=== PATIENT | male | born 1945 | race Caucasian/White ===

== ENCOUNTER → 2023-11-10 07:49 | Outpatient (REF) | payer BC, SELFPAY | LOC: DHVS 07:49 | PROVIDERS: ATTENDING PHYSICIAN Surgery Vascular Surgery | DX: I65.23 Occlusion and stenosis of bilateral carotid arteries (principal) | CPT/HCPCS: 93880 ==

== ENCOUNTER → 2024-02-27 07:48 | Outpatient (REF) | payer BC, SELFPAY | LOC: RCS 07:48 | PROVIDERS: ATTENDING PHYSICIAN Internal Medicine; FAMILY PHYSICIAN Internal Medicine | DX: Z95.3 Presence of xenogenic heart valve (principal) | CPT/HCPCS: 93306 ==

== ENCOUNTER → 2024-06-16 12:09 | Outpatient (REF) | payer BC, SELFPAY | LOC: RAD 12:09 | PROVIDERS: ATTENDING PHYSICIAN Nurse Practitioner Family | DX: R06.02 Shortness of breath (principal); R04.2 Hemoptysis | CPT/HCPCS: 71046 ==

== ENCOUNTER → 2024-06-17 08:54 | Outpatient (REF) | payer BC, SELFPAY | LOC: REG 08:54 | PROVIDERS: ATTENDING PHYSICIAN Nurse Practitioner Family | DX: R04.2 Hemoptysis (principal) | CPT/HCPCS: 36415; 87070; 87205 ==

== ENCOUNTER → 2024-07-19 07:22 | Outpatient (REF) | payer BC, SELFPAY | LOC: HWRAD 07:22 | PROVIDERS: ATTENDING PHYSICIAN Nurse Practitioner Family; FAMILY PHYSICIAN Internal Medicine | DX: J84.10 Pulmonary fibrosis, unspecified (principal); R93.89 Abnormal findings on diagnostic imaging of other specified body structures | CPT/HCPCS: 71250 ==

== ENCOUNTER → 2024-08-16 22:00 | Outpatient (REF) | payer BC, SELFPAY | LOC: DHSLP 22:00 | PROVIDERS: ATTENDING PHYSICIAN Internal Medicine Critical Care Medicine; FAMILY PHYSICIAN Internal Medicine | DX: G47.33 Obstructive sleep apnea (adult) (pediatric) (principal); R09.02 Hypoxemia | CPT/HCPCS: 95800 ==

== ENCOUNTER → 2024-11-15 09:06 | Outpatient (REF) | payer BC, SELFPAY | LOC: RAD 09:06 | PROVIDERS: ATTENDING PHYSICIAN Internal Medicine | DX: J84.10 Pulmonary fibrosis, unspecified (principal); M16.11 Unilateral primary osteoarthritis, right hip; M54.31 Sciatica, right side | CPT/HCPCS: 72110; 73502 ==

== ENCOUNTER → 2024-11-22 07:42 | Outpatient (REF) | payer BC, SELFPAY | LOC: RAD 07:42 | PROVIDERS: ATTENDING PHYSICIAN Physician Assistant; FAMILY PHYSICIAN Internal Medicine | DX: I65.23 Occlusion and stenosis of bilateral carotid arteries (principal) | CPT/HCPCS: 93880 ==

== ENCOUNTER 2025-01-14 16:57 | Inpatient (IN) | payer BC, SELFPAY ==
[2025-01-14] VITALS (10 sets, daily range): BP systolic 105–132; BP diastolic 71–88; BMI 31.3; BMI 31.0; BMI 30.8
--- NOTE | 2025-01-14 14:03 | ED.GENMED ---
History of Present Illness
General
Chief Complaint: Breathing Problem
Source: patient and spouse
Exam Limitations: none
Time Seen by Provider: 01/14/25 13:44
Nursing documentation reviewed up to this point in time: agreed with
History of Present Illness
History of Present Illness:
79-year-old male presents with shortness of breath subacute onset 3 weeks ago was not using oxygen has had increased cough shortness of breath requiring oxygen no fevers no sputum production no leg edema has a history of interstitial lung disease,
PAF, said bypass surgery, his valve replacement surgery, has been compliant with his blood thinners, did have a recent trip to [place] to go fishing apparently his sats were in the high 60s during the trip, he flew to [facility] in the [place] and back,
Past History
Past History
ED Past Medical History: Arrthythmia, CAD, GERD, HTN, Hypercholesterolemia, Psychiatric, Other and Other
ED Past Surgical History: Cardiac
Social History
Tobacco: Former smoker
Alcohol: None
Drug: None
Personal:
Living: with family
Phy Exam
Physical Exam
Physical Exam:
Physical Exam
General: Tachypneic male
Neck: No jaundice
Heart: Tachycardia
Lungs: Faint crackles but
Abdomen: Nontender
Neuro: alert and oriented. no focal neurological deficits
Skin: no rash
Psychiatric: well kept. interactive and cooperative
Extremities: no edema. no calf tenderness.
Scores
Heart Failure Risk
Heart Failure Risk Score: Not Applicable
Course
Orders/Labs/Results
Orders:
Orders
01/14/25 13:33
EKG [Electrocardiogram (*1)] Urgent
Reason for Study: Chest Pain
01/14/25 13:34
EKG- Treatment ONCE
01/14/25 13:57
Electrocardiogram (*1) Stat
Reason for Study: Other
Other Reason for Exam: chest pain
Cardiac Monitoring- Treatment ONCE
EKG- Treatment ONCE
CR Chest - 2 Views Urgent
Comment:
Reason For Exam: sob
01/14/25 13:59
Complete Blood Count/With Diff Urgent
Comprehensive Metabolic Panel Urgent
Magnesium Urgent
NT-proBNP Urgent
TSH Urgent
Troponin I Urgent
Abnormal Lab Results
01/14/25
13:59
MCV 97.0 H fL
(80.0-94.0)
MCHC 31.4 L g/dL
(33.0-37.0)
RDW 17.2 H %
(11.5-14.5)
Abs Immat Gran (auto) 0.1 H 10^3/uL
(0-0.05)
Absolute Neuts (auto) 7.4 H 10^3/uL
(1.4-6.5)
Absolute Monos (auto) 0.8 H 10^3/uL
(0.1-0.6)
Lymphocytes % 17.0 L %
(20.5-51.1)
Potassium 5.3 H mmol/L
(3.5-5.1)
Chloride 110 H mmol/L
(98-107)
BUN 37 H mg/dl
(9-20)
Creatinine 1.5 H mg/dL
(0.7-1.3)
01/14/25 13:59
01/14/25 13:59
Vital Signs
Initial and Last Documented VS:
Initial Vital Signs
Temp Pulse Resp BP Pulse Ox
97.7 F 74 18 127/81 81
01/14/25 13:09 01/14/25 13:09 01/14/25 13:09 01/14/25 13:09 01/14/25 13:09
Last Documented Vital Signs
Temp Pulse Resp BP Pulse Ox
97.7 F 63 25 105/73 95
01/14/25 13:09 01/14/25 15:00 01/14/25 15:00 01/14/25 15:00 01/14/25 15:00
MDM/Problems Addressed
Differential Diagnosis Includes:
Interstitial lung disease flare, heart failure pneumonia pneumothorax doubt PE as he is anticoagulated
MDM/Problems Addressed:
Hypoxic
Chronic conditions affecting care:
Interstitial lung disease valvular disease CAD
Acute Exacerbation and/or Progression of Chronic Illness:
Interstitial lung disease valvular disease CAD
*Radiology
Radiology exam reviewed: preliminary read by ED provider
*Pulse Oximetry
Patient hypoxic: yes
*EKG
Interpreted by ED Provider?: Yes
Interpretation: abnormal
Comparison EKG: no comparison EKG present
Rate: normal
Rhythm: sinus
Ischemia: non-specific ST changes
*Door [employer] S[employer] Interpretation
Rate: normal
Interpretation: normal
Heart Rate: 78
Rhythm: sinus
*Critical Care Note
Total Time (30-74mins, 75-104mins- exclusive of procedures): Not Applicable
Update Note
Update Note:
Update patient with increased oxygen requirement subacute going from room air to 3 to 4 L, sats as high as the high 60s he is anticoagulated, relatively quiet chest, will check chest x-ray labs
3:10 PM chest x-ray noted---
Patient will require admission, message sent to hospitalist and pulmonary
ED Attending Note
-
Portions of this chart may have been created with voice recognition software.� Occasional wrong word or��sound alike� substitutions may have occurred due to the inherent limitations of voice recognition software.
Discharge Plan
Departure
Patient Disposition: Admit
Date of Disposition: 01/14/25
Time of Disposition: 15:08
Admit to: Med/Surg
Presentation/result/management discussed w/ accepting MD/DO: Hospitalist
Patient with high blood pressure during this ER visit?: No
Condition: Fair
Discharge Problem:
Hypoxia, Idiopathic interstitial fibrosis
Prescriptions:
No Action
aspirin 81 MG tablet,delayed release (DR/EC)
81 mg PO DAILY
isosorbide mononitrate 30 MG tablet extended release 24 hr
30 mg PO DAILY
Xarelto 20 MG tablet
20 mg PO DAILY
lisinopril 20 MG tablet
20 mg PO DAILY
furosemide 20 MG tablet
20 mg PO DAILY
metoprolol succinate 50 MG tablet extended release 24 hr
100 mg PO DAILY
diltiazem HCl [DILT-XR] 180 mg Capsule,Ext.Rel 24h Degradable
180 mg PO DAILY
alirocumab 75 mg/mL Syringe
75 mg SC Q2W
fenofibrate nanocrystallized [Tricor] 145 mg Tablet
145 mg PO DAILY
Referrals:
Shay Rubio MD [Family Provider] -
Interventions
Interventions:
*Risk Screen - Suicide Last Done: 01/14/25 13:09
*General Assessment Last Done: 01/14/25 13:09
*Neglect/Abuse Screening Last Done: 01/14/25 13:09
*ED- Fall Risk Assessment Last Done: 01/14/25 13:49
*ED COVID-19 Vaccine History Last Done: 01/14/25 13:49
ED- Cardiac Assessment Last Done: 01/14/25 13:49
ED- Pulmonary Assessment Last Done: 01/14/25 13:49
Discharge Date and Time
Print Language: POLISH
[2025-01-14 14:07] LABS: % Basophils 0.4 % (0-2); % Eosinophils 3.6 % (0-6); % Immature Granulocytes 0.5 % (0-0.5); % Monocytes 7.3 % (1.7-9.3); % Neutrophils 71.2 % (42.2-75.2); Absolute Eosinophils 0.4 10^3/uL (0-0.7); Absolute Immature Granulocytes 0.1 10^3/uL (0-0.05); Absolute Lymphocytes 1.8 10^3/uL (1.2-3.4); Absolute Monocytes 0.8 10^3/uL (0.1-0.6); Absolute Neutrophils 7.4 10^3/uL (1.4-6.5); Hemoglobin 15.4 g/dL (13.0-18.0); Mean Corp Hgb Conc. 31.4 g/dL (33.0-37.0); Mean Corpuscular Hgb 30.5 pg (27.0-31.0); Mean Platelet Volume 9.9 fL (7.4-10.4); Nucleated Red Blood Cells % 0.6 % (-); Platelet Count 219 10^3/uL (130-400); Red Blood Cell Count 5.05 10^6/uL (4.70-6.10); Red Cell Dist. Width 17.2 % (11.5-14.5); White Blood Cell Count 10.4 10^3/uL (4.8-10.8)
[2025-01-14 14:36] LABS: ALT (SGPT) 23 U/L (0-50); AST (SGOT) 38 U/L (17-59); Albumin 4.1 g/dl (3.5-5.0); Alkaline Phosphatase 47 U/L (38-126); Blood Urea Nitrogen 37 mg/dl (9-20); Calcium 9.4 mg/dl (8.4-10.2); Carbon Dioxide 23 mmol/L (22-30); Chloride 110 mmol/L (98-107); Estimated Creatinine Clearance 46 ml/min; Glucose 91 mg/dl (70-99); Magnesium 2.2 mg/dl (1.6-2.3); Potassium 5.3 mmol/L (3.5-5.1); Sodium 145 mmol/L (135-145); Total Protein 7.3 g/dl (6.3-8.2); eGFR 47.65
[2025-01-14 15:05] LABS: TSH 4.44 uIU/ml (0.47-4.68)
--- NOTE | 2025-01-14 15:35 | HPS.HSE ---
Family Physician
-
Family Physician: Shay Rubio
Chief Complaint
-
sob
cough
History of Present Illness
79-year-old male with past medical history of A-fib, hyperlipidemia, carotid stenosis, hypertension, pulmonary interstitial fibrosis, pulmonary nodule, anxiety, coronary artery disease, prostate cancer, GERD, presents with shortness of breath for
past 3 weeks . Patient uses as needed oxygen . For past few days he has been using pretty much all the time he was using 3 L of oxygen.patient has productive cough with brownish tinged sputum patient denied any fever, chills, chest pain . Patient
denied any headache, dizzy or syncope. Patient denied abdominal pain, nausea, vomiting or diarrhea. Patient denied dysuria hematuria. Patient was at [facility] for past 7 days.
Chest x-ray with impression of severe inflammatory interstitial pneumonitis. Admitting for further manage
Medical History
Past Medical History
Past Medical History: Reports Other
Additional Past Medical History:
Paroxysmal A-fib
Hyperlipidemia, bilateral carotid stenosis, hypertension, pulmonary interstitial fibrosis, pulmonary nodule, anxiety, prostate cancer, hypertension, GERD,
Past Surgical History: Reports Other
Additional Past Surgical History:
Aortic valve replacement, eye surgery, bilateral cataract surgery, right carotid endarterectomy, cardiac ablation
Social History
Tobacco: Former Smoker
Alcohol: Occasional
Drug: None
Personal:
Living: With Family
Family History
Family History: Not pertinent
Allergies / Home Medications
Allergies reflects when Allergies were last updated in [facility].
Home Medications with original date entered in [facility]
Allergy/Medication List:
Allergies
Allergy/AdvReac Type Severity Reaction Status Date / Time
Penicillins Allergy Hives/CHILD Verified 01/14/25 13:09
MERAZ
Goetxgw-IYD-ThZ Reductase Allergy Myalgia Verified 01/14/25 13:09
Inhibitor
[Zbyqfpj-Mcw-Xfx Reductase
Inhibitor]
Home Medications
isosorbide mononitrate 30 mg tablet,extended release 24 hr 30 mg PO DAILY Heart disease/condition 08/21/18
rivaroxaban 20 mg tablet (Xarelto) 20 mg PO DAILY Blood clot prevention/tx 08/21/18
lisinopril 20 mg tablet 20 mg PO DAILY Blood pressure 05/04/19
furosemide 20 mg tablet 20 mg PO DAILY Fluid retention/Swelling 02/23/21
diltiazem HCl 180 mg capsule,extended release 24 hr, controlled (DILT-XR) 180 mg PO DAILY 04/04/22
fenofibrate nanocrystallized 145 mg tablet (Tricor) 145 mg PO DAILY 04/23/22
alirocumab 75 mg/mL subcutaneous pen injector (Praluent Pen) 75 mg SC Q2W 01/14/25
metoprolol succinate 100 mg tablet,extended release 24 hr (Toprol XL) 100 mg PO DAILY 01/14/25
nintedanib 150 mg capsule (Ofev) 150 mg PO HS 01/14/25
therapeutic multivitamin 1 tab PO DAILY 01/14/25
Review of Systems
-
Constitutional: Reports No Symptoms
EENT: Reports No Symptoms
Respiratory: Reports Cough and Trouble Breathing
Cardiac: Reports No Symptoms
Abdomen/GI: Reports No Symptoms
: Reports No Symptoms
Musculoskeletal: Reports No Symptoms
Skin: Reports No Symptoms
Neurological: Reports No Symptoms
Endocrine: Reports No Symptoms
Hematologic/Lymphatic: Reports No Symptoms
Psych: Reports No Symptoms
Physical Exam
Vital Signs
Vital Signs
Temp Pulse Resp BP Pulse Ox
97.7 F 63 25 105/73 95
01/14/25 13:09 01/14/25 15:00 01/14/25 15:00 01/14/25 15:00 01/14/25 15:00
Physical Exam
General: Well Developed, Well Nourished and No Apparent Distress
HEENT: NormoCephalic, Moist mucous membranes and Atraumatic
Respiratory: Crackles
Cardiac: S1/S2 and Regular Rhythm; No Murmur or Rub
GI: Soft, Non Tender, Non Distended and Normal Bowel Sounds; No Organomegaly
Rectal: Deferred by Provider
Musculoskeletal: No Clubbing, No Cyanosis and No Edema
Skin: No Rash
Neuro: AO x 3 and Nonfocal/grossly intact
Psych: Calm
Laboratory Results
-
01/14/25 13:59
01/14/25 13:59
Laboratory Results
Total Bilirubin 1.0 mg/dl (0.2-1.3) 01/14/25 13:59
AST 38 U/L (17-59) 01/14/25 13:59
ALT 23 U/L (0-50) 01/14/25 13:59
Alkaline Phosphatase 47 U/L (38-126) 01/14/25 13:59
Data Reviewed
-
Diagnostic Radiology: Report Reviewed by me
Lab Data: Labs Reviewed by me
Impression/Plan
-
# Acute hypoxic respiratory failure secondary to severe inflammatory interstitial pneumonitis
# History of idiopathic pulmonary fibrosis
- Chest x-ray with impression of SEVERE INFLAMMATORY INTERSTITIAL PNEUMONITIS in the lungs most consistent with usual interstitial pneumonitis (UIP) which appears to have increased since 06/16/2024.
2. Interval increase in a large amount of ground-glass opacity in the right upper lobe which is likely acute inflammatory pneumonitis. Right upper lobe pneumonia is an alternative diagnostic possibility if there are signs/symptoms of infection
(probably less likely).
3. Mildly decreased bilateral lung volumes.
4. Mild cardiomegaly.
-iv ceftriaxone, doxy, Decadron continued
- Tylenol as needed for fever
- Mucinex as needed for cough
- Nebs as needed for short of breath and wheezing
- Continue supplemental oxygen to keep sat greater than 95, wean as tolerated
- Ofev continued
-pulmonary consulted
# Hyperkalemia a/acute kidney injury likely from lisinopril
- K 5.3, creatinine 1.5
- BMP in a.m.
# Paroxysmal A-fib
- EKG with normal sinus rhythm
- Diltiazem, metoprolol, Xarelto continued
# Hyperlipidemia
- Tricor continued
# Essential hypertension
- Isosorbide,Lasix continued
-held Lisinopril
DVT prophylaxis
- Xarelto
# CODE STATUS
- Full code
[2025-01-14 16:34] LABS: NT-proBNP 2360 pg/ml; Troponin I 0.038 ng/ml
--- NOTE | 2025-01-14 16:58 | CON.PUL ---
Consultation
Consultation Request
Date/Time Consultation Requested: 01/14/2025 - 1509
Date/Time Consultation Performed: 01/14/2025 - 1529
Requesting Provider: Dr. Ruvalcaba
Performing Provider: Dr. Ruffin
Reason for Consultation: Hypoxia/ILD
Medical History
-
Chief Complaint: SOB, cough and low oxygen levels
History of Present Illness:
79-year-old former tobacco smoker with a PMHx of IPF on Ofev, chronic hypoxic respiratory failure on 3L/min used with activity, A-fib s/p DCCV x2 and ablation x2 on Xarelto now in NSR, carotid artery stenosis s/p right-sided CEA, CAD s/p CABG x2, AV
stenosis s/p bioprosthetic AVR, HTN, HLD and prostate cancer s/p SBRT who p/w SOB, cough and low oxygen levels. Here today with his , Kiki. He has had a cough for several weeks now, and has been productive of brown phlegm mixed with blood.
As his cough improved, he became increasingly SOB. He hears himself wheezing sometimes. He does not use inhalers as they 'never made him breathe better.' He wears O2 at home at 3L/min with activity and prn, and has been wearing his O2 more as
of late due to SOB. He recently went on a fishing trip with his friends in [facility]. Prior to leaving, his oxygen levels would be in 60-70s, but he went on this trip regardless. In the ER, he was afebrile to 97.7F, HR 61, BP 116/74 and
saturating 81% on 3L/min, which kathleen to 95% on 4L/min. Labs showed WBC 10.4, Hb 15.4, absolute eosinophil count 400, Cr 1.5, K 5.3, troponin 0.038, proBNP 2360, and covid-19 antigen negative. Flu swab also negative. CXR shows interstitial
pneumonitis with increased GGO in RUL. Pt was started on steroids and Abx, and admitted to telemetry under the hospitalist. Pulmonary service now consulted for additional management/recommendations.
Of note, patient follows with us in [facility] office with Dr. Rubio. He underwent pulmonary rehab program in 2022. PFTs from 2021 showed moderate-severe restrictive lung disease with moderate gas exchange capacity defect that normalized when
accounting for alveolar volume involved in gas exchange (DLco: 42%; DLco/VA: 75%).
PMHx: IPF, restrictive lung disease, A-fib on xarelto s/p ablation x2 (02/2021 + 03/2022) with Hx of DCCV x2, bilateral carotid artery stenosis s/p R-CEA (04/2019), aortic stenosis s/p bioprosthetic AVR, CAD s/p CABG x2 (05/2017), HTN, HLD, prostate
cancer s/p SBRT (02/2016)
PSHx: AVR (05/2017), CABG x2 (05/2017)
Past Medical History
Past Medical History: Other (Above as per HPI)
Past Surgical History: Other (Above as per HPI)
Social History
Tobacco: Former Smoker
Alcohol: None
Drug: None
Personal:
Living: With Family
Employment: Retired ([employer])
Family History
Family History: Cancer (Father), Hypertension (Maternal grandmother) and Other (Father: stroke; Mother: COPD)
Allergies / Home Medications
Allergies
Allergy/AdvReac Type Severity Reaction Status Date / Time
Penicillins Allergy Hives/CHILD Verified 01/14/25 13:09
MERAZ
Klmwmsf-YKV-RzN Reductase Allergy Myalgia Verified 01/14/25 13:09
Inhibitor
[Qqovpvu-Obg-Dyc Reductase
Inhibitor]
Home Medications
�Medication �Instructions �Recorded �Confirmed �Last Taken �Type
isosorbide mononitrate 30 mg 30 mg PO DAILY Heart 08/21/18 01/14/25 01/14/25 History
tablet,extended release 24 hr disease/condition
rivaroxaban 20 mg tablet (Xarelto) 20 mg PO DAILY Blood clot 08/21/18 01/14/25 01/14/25 History
prevention/tx
lisinopril 20 mg tablet 20 mg PO DAILY Blood pressure 05/04/19 01/14/25 01/14/25 History
furosemide 20 mg tablet 20 mg PO DAILY Fluid 02/23/21 01/14/25 01/14/25 History
retention/Swelling
diltiazem HCl 180 mg 180 mg PO DAILY 04/04/22 01/14/25 01/14/25 History
capsule,extended release 24 hr,
controlled (DILT-XR)
fenofibrate nanocrystallized 145 145 mg PO DAILY 04/23/22 01/14/25 01/14/25 History
mg tablet (Tricor)
alirocumab 75 mg/mL subcutaneous 75 mg SC Q2W 01/14/25 01/14/25 Unknown History
pen injector (Praluent Pen)
metoprolol succinate 100 mg 100 mg PO DAILY 01/14/25 01/14/25 01/14/25 History
tablet,extended release 24 hr
(Toprol XL)
nintedanib 150 mg capsule (Ofev) 150 mg PO HS 01/14/25 01/14/25 01/13/25 History
therapeutic multivitamin 1 tab PO DAILY 01/14/25 01/14/25 01/14/25 History
Review of Systems
-
History Source: Patient
All other systems: Negative unless noted
Vitals / Labs / Diagnostic Testing
Vital Signs
Temp Pulse Resp BP Pulse Ox
97.7 F 63 25 105/73 95
01/14/25 13:09 01/14/25 15:00 01/14/25 15:00 01/14/25 15:00 01/14/25 15:00
Lab Data
01/14/25 13:59
01/14/25 13:59
Diagnostic Testing:
Physical Exam
-
HEENT: Normocephalic and Anicteric
Cardiovascular: S1/S2, Murmur (NADIRA heard across precordium) and Peripheral Edema (Trace right lower extremity edema, no edema on left lower extremity)
Respiratory: Wheeze (Bilaterally mainly in the bases to midlung roland), Rales (Bilaterally) and Rhonchi (negative)
GI: Soft, Non Distended, Non Tender and Normal Bowel Sounds
Neurology: AO x 3 and Tremors (negative)
Skin: Warm and Dry
General: Respiratory Distress (negative), Comfortable, Fever (negative) and Chills (negative)
Assessment
-
Assessment: 79-year-old former tobacco smoker with a PMHx of IPF on Ofev, chronic hypoxic respiratory failure on 3L/min used with activity, A-fib s/p DCCV x2 and ablation x2 on Xarelto now in NSR, carotid artery stenosis s/p right-sided CEA, CAD
s/p CABG x2, AV stenosis s/p bioprosthetic AVR, HTN, HLD and prostate cancer s/p SBRT who p/w SOB, cough and low oxygen levels. Here today with his , Kiki. He has had a cough for several weeks now, and has been productive of brown phlegm
mixed with blood. As his cough improved, he became increasingly SOB. He hears himself wheezing sometimes. He does not use inhalers as they 'never made him breathe better.' He wears O2 at home at 3L/min with activity and prn, and has been
wearing his O2 more as of late due to SOB. He recently went on a fishing trip with his friends in [facility]. Prior to leaving, his oxygen levels would be in 60-70s, but he went on this trip regardless. In the ER, he was afebrile to 97.7F, HR
61, BP 116/74 and saturating 81% on 3L/min, which kathleen to 95% on 4L/min. Labs showed WBC 10.4, Hb 15.4, absolute eosinophil count 400, Cr 1.5, K 5.3, troponin 0.038, proBNP 2360, and covid-19 antigen negative. Flu swab also negative. CXR shows
interstitial pneumonitis with increased GGO in RUL. Pt was started on steroids and Abx, and admitted to telemetry under the hospitalist. Pulmonary service now consulted for additional management/recommendations.
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
HLD, prostate cancer s/p SBRT (02/2016)
Impression:
#Acute on chronic respiratory failure with hypoxia
#IPF with suspected flare
#MARLON
#Elevated troponin likely due to demand ischemia/type II IN
#Moderate-severe restrictive lung disease (T% predicted via PFT from 08/2022)
#Severe ARAVIND - AHI: 34.1 with casey SpO2 71% via HSAT from 08/2024
#Chronic HFpEF/diastolic heart failure
#A-fib s/p DCCV x2 + ablation x2 now in NSR
#Hx of prostate cancer s/p SBRT (02/2016)
#Hx of moderate-severe aortic stenosis s/p bioprosthetic AVR (05/2017)
#CAD s/p CABG x2 (05/2017)
#HTL
#HLD
#Former tobacco smoker
Plan:
- Patient has had worsening hypoxia with a productive cough and worsening SOB that has been progressively worsening over the last several days/weeks
- He also has been hearing himself wheeze, and his absolute eosinophils are currently 400 (range is 300-500) --> he does not use inhalers at home as they have not made him breathe better in the past
- He is currently wheezing, hence would start DuoNebs QID and given prn DuoNebs for breakthrough symptoms; he may have underlying RAD
- He has increased opacification in the right upper lobe seen on CXR
- Although his WBC is WNL at 10.4, would empirically treat for pneumonia
- Also appropriate to treat with systemic steroids for a possible ILD flare (also wheezing), although this does seem more infectious at this point
- Would check infectious workup with sputum culture, blood cultures, Legionella/pneumonia urine antigens
- Aspiration precautions
- Continue with supplemental oxygen and titrate to maintain SpO2 >90-94%; he will need a home O2 assessment prior to discharge to re-assess O2 needs
- Continue Ofev
- Trend troponin level until it peaks
- proBNP is elevated at 2360, and he does have mild edema on RLE but he says this is chronic. He does not appear overloaded on exam - continue to monitor and consider trial of lasix if hypoxia worsens despite ABx and steroids
- He does take lasix 20mg daily at home, but this should be held currently in setting of his MARLON
- Consider repeating echo (last performed in February 2024 showing Stage II diastolic dysfunction with no regional WMA and LVEF 65-70%)
- Renally dose all meds/ABx
- Trend UOP, sCr, [K] levels and I/O
- Incentive spirometer encouraged q1hr while awake
- He does have a Hx of severe ARAVIND - would consider using CPAP with sleep
- Replete electrolytes with K>4, Mg>2
- Trend H/H and transfuse if needed to keep Hb>7g/dL; keep plt>20k, unless there is concern for bleeding then keep plt>50k
- Maintain euglycemia with goal BG >100 and <180
- DVT ppx: Xarelto
Pulmonary service will continue to follow along. Will assure he has follow up arranged with Dr. Rubio upon discharge.
Data:
CXR 01/14/2025:
1. 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
2. Interval increase in a large amount of ground-glass opacity in the right upper lobe which is likely acute inflammatory pneumonitis. Right upper lobe pneumonia is an alternative diagnostic possibility if there are signs/symptoms of infection
(probably less likely).
3. Mildly decreased bilateral lung volumes.
4. Mild cardiomegaly.
5. Previous CABG surgery and surgical aortic valve replacement.
Total time spent today was 58 minutes for this encounter. Time includes reviewing laboratory test/imaging results, reviewing pertinent medical records, obtaining and reviewing medical history, performing an appropriate exam, ordering medications,
tests and procedures. Time also includes documentation of this encounter, coordinating patient care and communicating with other healthcare professionals. Total time does not include separately billed tests performed on this date of service.
Patient was seen and evaluated on 01/14/2025
[2025-01-14 17:54] LABS: COVID-19 Antigen Negative (Negative)
--- NOTE | 2025-01-14 18:30 | PTCARENOTE ---
Received patient from ED via stretcher. AAOx3, ambulated to bed without assistance. Assessed and oriented to room. 5LO2 96%. No complaints at present time. Call morales in close reach.
--- NOTE | 2025-01-14 19:06 | W.PN.UPDATE ---
Update Note
Progress Note Update
This is an addendum to the H&P written by Vicki Hardin on 01/14/2025.� Patient seen and examined independently with [employer]OOTER'S HELPER.
79-year-old male past medical history of incisional pulmonary fibrosis uses oxygen as needed, paroxysmal atrial fibrillation on Xarelto, CAD status post CABG, CHF, bioprosthetic aortic valve replacement, carotid stenosis, hypertension,
hyperlipidemia, presenting with hypoxemia over the past few weeks and shortness of breath with productive cough.� No signs of volume overload or chest pain.
Patient on 4L oxygen.�
Labs show creatinine 1.5, potassium 5.3.
Chest x-ray shows severe inflammatory interstitial pneumonitis in the lung consistent with usual interstitial pneumonitis which appears to have increased since 06/16.� There is increase in large amount of groundglass opacity in the right upper lobe
likely acute inflammatory pneumonitis.� Mild cardiomegaly.
Check COVID and flu.
Patient with likely interstitial pneumonitis flareup.� Will start empiric ceftriaxone/doxycycline.� Dexamethasone 4 mg every 12, as needed DuJesus.� Pulmonary consulted.� Does not appear volume overloaded.
Patient also with borderline MARLON and hyperkalemia likely secondary to lisinopril.� Hold lisinopril.
[2025-01-14] MEDS: DUONEB 3 ML INH (19:09)
[2025-01-14 20:32] LABS: Troponin I 0.033 ng/ml
[2025-01-14] MEDS: VIBRAMYCIN 100 MG PO (20:47)
[2025-01-14] MEDS: DECADRON 4 MG IV (20:48)
[2025-01-14] MEDS: STERILE WATER FOR INJECTION 10 ML IV (20:48)
[2025-01-14] MEDS: FLUSH (NSS) 1 FLUSH IV (20:49)
[2025-01-14] MEDS: MUCINEX 600 MG PO (20:49)
[2025-01-14] MEDS: ROCEPHIN 1000 MG IV (20:49)
[2025-01-15] VITALS (7 sets, daily range): BP systolic 96–123; BP diastolic 58–83; BMI 30.8
[2025-01-15 02:44] LABS: Troponin I 0.029 ng/ml
[2025-01-15] MEDS: DECADRON 4 MG IV ×2 (05:59→17:12)
[2025-01-15 06:59] LABS: % Basophils 0.1 % (0-2); % Eosinophils 0.2 % (0-6); % Immature Granulocytes 0.5 % (0-0.5); % Monocytes 1.1 % (1.7-9.3); % Neutrophils 87.1 % (42.2-75.2); Absolute Lymphocytes 0.9 10^3/uL (1.2-3.4); Absolute Monocytes 0.1 10^3/uL (0.1-0.6); Absolute Neutrophils 7.1 10^3/uL (1.4-6.5); Hematocrit 49.5 % (39.0-52.0); Hemoglobin 15.7 g/dL (13.0-18.0); Mean Corp Hgb Conc. 31.7 g/dL (33.0-37.0); Mean Corpuscular Hgb 30.9 pg (27.0-31.0); Mean Corpuscular Volume 97.4 fL (80.0-94.0); Mean Platelet Volume 9.9 fL (7.4-10.4); Nucleated Red Blood Cells % 0.4 % (-); Platelet Count 198 10^3/uL (130-400); Red Blood Cell Count 5.08 10^6/uL (4.70-6.10); Red Cell Dist. Width 16.5 % (11.5-14.5); White Blood Cell Count 8.2 10^3/uL (4.8-10.8)
[2025-01-15 07:30] LABS: Blood Urea Nitrogen 36 mg/dl (9-20); Calcium 9.2 mg/dl (8.4-10.2); Carbon Dioxide 25 mmol/L (22-30); Chloride 111 mmol/L (98-107); Estimated Creatinine Clearance 52 ml/min; Glucose 135 mg/dl (70-99); Magnesium 2.2 mg/dl (1.6-2.3); Phosphorus 5.1 mg/dl (2.5-4.5); Potassium 5.5 mmol/L (3.5-5.1); Sodium 147 mmol/L (135-145); eGFR 56.58
[2025-01-15] MEDS: DUONEB 3 ML INH ×3 (08:04→15:17)
[2025-01-15] MEDS: TRICOR 48 MG PO (08:27)
[2025-01-15] MEDS: CARDIZEM CD 180 MG PO (08:27)
[2025-01-15] MEDS: XARELTO 15 MG PO (08:27)
[2025-01-15] MEDS: THERAGRAN 1 TABLET PO (08:27)
[2025-01-15] MEDS: LASIX 20 MG PO (08:27)
[2025-01-15] MEDS: TOPROL XL 100 MG PO (08:27)
[2025-01-15] MEDS: IMDUR (EXTENDED RELEASE) 30 MG PO (08:28)
[2025-01-15] MEDS: MUCINEX 600 MG PO ×2 (08:28→19:43)
[2025-01-15] MEDS: VIBRAMYCIN 100 MG PO ×2 (08:28→19:43)
[2025-01-15] MEDS: LR 500 IV (09:04)
[2025-01-15] MEDS: LOKELMA 10 GRAM PO (09:06)
--- NOTE | 2025-01-15 09:34 | W.PN.HOSP.TC ---
Today's Communication/Plan
-
see PN
Assessment / Plan
Assessment / Plan
79yo M with PMHx of carotis stensis s/p r CEA, CAD s/p CABG, Afib on Xarelto, bioprosthetic AV (as per Echo at summer 2023 - gradient increased from 7 to 22), HFpEF grade 2 diastolic dysfunction, HTN, HLD, ILD on 2L home O2 as needed came with few
weeks of worsening SOB started when he traveled to [facility] for a fishing. He took his concentrator with him and since started to experience dyspnea - used it, but as per patient his pulse O2 duid not go above 75% and he was concerned if
concentrator actually was working. Upon return he came to ED due to persistent dyspnea and staretd on treatment for ILD with psosible pneumonia
A/P:
#Acute idiopatic ILD flare with most likely UIP anthony possible RUL pneumonia
restrictive pattern on outpatient PFT
follows with
Pulm consult: steroids, bronchodilators, Ceftriaxone/Doxy
Wean off O2
CM for appropriate home f/u to make sure that concerntrator is working before d/c
#Acute on chronic HFpEF
#Bioprosthetic AV
#Afib, paroxysmal
#Essential HTN
#Elevated trop - non-ischemic myocardial injury 2/2 hypoxia
Troponin improved to normal
EKG without ACS findings
Elevated BNP on admission
Lasix PRN, daily weight and follow electrolytes
cont Xarelto
telemetry
cont BB
Cardio consult
Echo
#Hypernatremia
#MARLON on admission
#Hyperkalemia
Lasix
follow BMP
stop ACEi
follow Cr - baseline 1.1-1.2
#HLD
cont home meds
DVt ppx Xarelto
Full code
I have spent at least 59min reviewing chart, test results, communication with consultantants and providing direct patient care
Anticipated Discharge: > 48 hours
Subjective/Interval History
-
Date of Service: January 15, 2025
Objective Data
-
Labs:
Laboratory Results
01/15/25 01/15/25
06:45 18:00
WBC 8.2
Hgb 15.7
Hct 49.5
Plt Count 198
Sodium 147 H Pending
Potassium 5.5 H Pending
Chloride 111 H Pending
Carbon Dioxide 25 Pending
BUN 36 H Pending
Creatinine 1.3 Pending
Glucose 135 H Pending
Calcium 9.2 Pending
Vital Signs:
Vital Signs
Temp Pulse Resp BP Pulse Ox
98.1 F 68 15 123/83 96
01/15/25 07:30 01/15/25 08:27 01/15/25 08:09 01/15/25 08:27 01/15/25 08:30
I&O
01/14/25 01/15/25 01/16/25
06:59 06:59 06:59
Intake Total 440 / 440
Output Total 400 / 400
Balance 40 / 40
Review of Systems
-
History Source: Patient
All other systems: Reviewed and negative
Physical Exam
-
General: Comfortable
HEENT: Normocephalic
Respiratory: Crackles (bibasilar)
Cardiac: Regular Rhythm
GI: Soft, Nontender and Nondistended
Genito-urinary: Costovertebral Angle Tend
Musculoskeletal: No Clubbing, No Cyanosis, Edema, Right Lower Extrem and Edema, Left Lower Extrem
Skin: Warm
Neuro: Awake, Alert, Oriented and AO x 3
Psych: Calm
[2025-01-15] MEDS: LASIX 40 MG IV (10:43)
--- NOTE | 2025-01-15 11:09 | CON.CAR ---
Addendum entered and electronically signed by William Day MD 01/15/25 16:17:
I saw and examined the patient.
The GIFT MANAGER's note was reviewed and I agree with the note.
Comment: LA pressure measured at PVI 03/2022: LA 16 mmHg at baseline, raising to 20 at end of procedure.LA pressure 02/2021: 11 at start and after PVI kathleen to 14 mmHg. He has no edema, abdominal distension, PND, or orthopnea. I do not feel that
heart failure is adding an acute component to his chronic respiratory symptoms but I have no objection to pushing diuresis to see respnons. He is on Lasix 20 mg daily as outpatient.
Original Note:
Consultation
Consultation Request
Date/Time Consultation Requested: 01/15/2025 09:30
Date/Time Consultation Performed: 01/15/2025 10:30
Requesting Provider: Dr. Sierra
Performing Provider: BRIANNE Holguin for Dr. Day
Reason for Consultation: CHF
Medical History
-
Chief Complaint: Shortness of breath
History of Present Illness:
Miles ('Heraclio'Hans Diehl is a 78-year-old male with coronary artery disease and aortic stenosis status-post CABG x2 (TERRY to LAD and SVG to OM3; RCA not bypassed due to small vessel size) and bioprosthetic aortic valve replacement (on 05/27/17),
paroxysmal atrial fibrillation status-post ablation (02/23/21; Dr. Pizano), DCCVN (09/25/18; currently on Xarelto), redo ablation (04/04/2022; Dr. Pizano), and subsequent DCCVN 04/23/2022, white coat hypertension, hyperlipidemia (on Praluent;
statin-intolerant), severe right carotid artery stenosis status-post right CEA (on 05/06/19), moderate left carotid artery stenosis (followed by Vascular Surgery--Dr. Sagastume), mild renal insufficiency, mild obesity, former cigarette use, restrictive
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
03/13/16; now in remission) presented to the emergency department with a chief complaint of shortness of breath. He was found to have an acute idiopathic ILD flare. Cardiology was consulted for concern with acute HFpEF. Bill is not sure what
'triggered' this. He reports getting an RSV vaccination last month and then went to the [facility] for a fishing trip. He felt unwell on the fishing trip and was more short of breath than usual. He did take his concentrator with him and was
using it more frequently in [place] than he was here in [place]. He reports feeling improved since his admission to the hospital. CXR with severe inflammatory interstitial pneumonitis. He was admitted with an MARLON which appears to have
resolved. He has mild hyperkalemia. He also has a CRP of 19.50. His proBNP was found to be 2360. No prior proBNP for comparison.
Past Medical History
Past Medical History: Arrhythmias (Paroxysmal atrial fibrillation status post ablation), CAD, Cancer (Prostate), HTN, Hypercholesterolemia, Valvular Disease (Bioprosthetic AVR) and Other (ILD, carotid artery stenosis, ARAVIND)
Past Surgical History: Cardiac
Social History
Tobacco: Former Smoker
Alcohol: Occasional
Drug: None
Personal:
Employment: Retired
Family History
Family History: Reviewed & Not Pertinent
Allergies / Home Medications
Allergy/AdvReac Type Severity Reaction Status Date / Time
Penicillins Allergy Hives/CHILD Verified 01/14/25 13:09
MERAZ
Npvezno-XYQ-NbD Reductase Allergy Myalgia Verified 01/14/25 13:09
Inhibitor
[Jfacwaq-Kod-Xmf Reductase
Inhibitor]
�Medication �Instructions �Recorded �Confirmed �Type
isosorbide mononitrate 30 mg 30 mg PO DAILY Heart 08/21/18 01/14/25 History
tablet,extended release 24 hr disease/condition
rivaroxaban 20 mg tablet (Xarelto) 20 mg PO DAILY Blood clot 12/07/18 05/02/25 History
prevention/tx
lisinopril 20 mg tablet 20 mg PO DAILY Blood pressure 05/04/19 01/14/25 History
furosemide 20 mg tablet 20 mg PO DAILY Fluid 02/23/21 01/14/25 History
retention/Swelling
diltiazem HCl 180 mg 180 mg PO DAILY 04/04/22 01/14/25 History
capsule,extended release 24 hr,
controlled (DILT-XR)
fenofibrate nanocrystallized 145 145 mg PO DAILY 04/23/22 01/14/25 History
mg tablet (Tricor)
alirocumab 75 mg/mL subcutaneous 75 mg SC Q2W 01/14/25 01/14/25 History
pen injector (Praluent Pen)
metoprolol succinate 100 mg 100 mg PO DAILY 01/14/25 01/14/25 History
tablet,extended release 24 hr
(Toprol XL)
nintedanib 150 mg capsule (Ofev) 150 mg PO HS 01/14/25 01/14/25 History
therapeutic multivitamin 1 tab PO DAILY 01/14/25 01/14/25 History
Review of Systems
-
History Source: Patient
All other systems: Negative unless noted
Constitutional: Fatigue
EENT: No Symptoms
Respiratory: Trouble Breathing
Cardiac: No Symptoms
Abdomen/GI: No Symptoms
: No Symptoms
Musculoskeletal: No Symptoms
Skin: No Symptoms
Neurological: No Symptoms
Endocrine: No Symptoms
Hematologic/Lymphatic: No Symptoms
Physical Exam
Vital Signs
Temp Pulse Resp BP Pulse Ox
98.1 F 68 15 123/83 96
01/15/25 07:30 01/15/25 08:27 01/15/25 08:09 01/15/25 08:27 01/15/25 08:30
Lab Results
01/15/25 06:45
Troponin I Cancelled 01/15/25 12:45
Sge-Q-Wzksvjtedaa Pept 2360 pg/ml 01/14/25 13:59
Physical Exam
General: Well Developed, Well Nourished, No Apparent Distress and Comfortable
HEENT: Normocephalic, Anicteric and Moist Mucous Membranes
Respiratory: Crackles (coarse) and Non Labored Respirations
Cardiac: S1/S2 and Regular Rhythm; Negative Peripheral Edema
Breast: Deferred by me
GI: Soft, Non Tender, Non Distended and Normal Bowel Sounds
Rectal: Deferred by Provider
Genito-urinary: No Costovertebral Tender
Musculoskeletal: No Cyanosis and No Edema
Skin: Warm and Dry
Neuro: AO x 3
Hematologic/Lymphatic: No Lymphadenopathy
Psych: Calm
Impression / Plan
-
I/P: 79M with CAD status post CABG x 2, bioprosthetic aortic valve replacement, paroxysmal atrial fibrillation (status post ablation 2020, 2021; on rivaroxaban), dyslipidemia, right CEA, moderate left carotid artery stenosis, former smoker, and
restrictive lung disease/pulmonary interstitial fibrosis and stage II adenocarcinoma of the prostate in remission who presented to the emergency department with a chief complaint of shortness of breath. Cardiology was consulted for concern of heart
failure.
Outpatient customer service administrator Dr. Harper
Acute on chronic hypoxic respiratory insufficiency in the setting of acute idiopathic ILD flare
- Restrictive pattern per outpatient PFT
- Antibiotics and steroids for pulmonary
- Trial of intravenous furosemide to assess for improvement, he has never had an acute heart failure exacerbation
- O2 being weaned as tolerated
MARLON on CKD
- Follow with diuresis
- Lisinopril on hold
Severe aortic stenosis s/p bioprosthetic AVR
- Peak/mean gradients 25/15 mmHg without AR on TTE 02/2024
Paroxysmal atrial fibrillation
- In sinus rhythm on metoprolol and diltiazem, continue
- Oral anticoagulation: Rivaroxaban 20 mg (creatinine clearance 52)
Coronary artery disease s/p CABG x 2 (PAUL, SVG�OM 3; RCA not bypassed due to small vessel size) 05/27/2017
- Stable without chest pain
- On Xarelto for paroxysmal atrial fibrillation, no ASA secondary to prior nosebleeding
Hypertension, chronic, stable, may need to decrease lisinopril for hyperkalemia
Former smoker, continued cessation recommended
Carotid artery stenosis, followed by vascular surgery
Stage II adenocarcinoma the prostate, in remission
SUBJECTIVE:
As above.
DATA:
Transthoracic echocardiogram, 02/27/2024:
CONCLUSIONS
Normal biventricular size and systolic function without regional wall motion
abnormality.
Stage II diastolic dysfunction suggestive of abnormal relaxation and increased
filling pressures.
Well seated, normally functioning, bioprosthetic aortic valve replacement with
peak/mean gradients of 25/15 mmHg. No aortic regurgitation.
Compared to prior study of 10/01/21, the mean gradient across the aortic
bioprosthetic valve was 7mmHg and is now 15mmHg.
Data Reviewed
-
EKG: Report Reviewed by me
Radiology: Report Reviewed by me
Medical Tests (Nuc Med, Echo etc): Report Reviewed by me
Labs: Labs Reviewed by me
Old Records: Reviewed
--- NOTE | 2025-01-15 16:41 | W.PN.PUL3 ---
Today's Communication / Plan
-
Continue DuoNebs
Systemic steroids with wean as he clinically improves
Okay to resume home Lasix dosing given MARLON has now resolved; given the elevated proBNP, not unreasonable to give short trial of IV Lasix
Up OOB as tolerated
Continue Ofev
Xarelto
Antibiotics with ceftriaxone/doxycycline
Outpatient follow-up will be arranged
Pulmonary service will continue to follow along
Assessment
-
Assessment: 79-year-old former tobacco smoker with a PMHx of IPF on Ofev, chronic hypoxic respiratory failure on 3L/min used with activity, A-fib s/p DCCV x2 and ablation x2 on Xarelto now in NSR, carotid artery stenosis s/p right-sided CEA, CAD
s/p CABG x2, AV stenosis s/p bioprosthetic AVR, HTN, HLD and prostate cancer s/p SBRT who p/w SOB, cough and low oxygen levels. Here today with his , Kiki. He has had a cough for several weeks now, and has been productive of brown phlegm
mixed with blood. As his cough improved, he became increasingly SOB. He hears himself wheezing sometimes. He does not use inhalers as they 'never made him breathe better.' He wears O2 at home at 3L/min with activity and prn, and has been
wearing his O2 more as of late due to SOB. He recently went on a fishing trip with his friends in [facility]. Prior to leaving, his oxygen levels would be in 60-70s, but he went on this trip regardless. In the ER, he was afebrile to 97.7F, HR
61, BP 116/74 and saturating 81% on 3L/min, which kathleen to 95% on 4L/min. Labs showed WBC 10.4, Hb 15.4, absolute eosinophil count 400, Cr 1.5, K 5.3, troponin 0.038, proBNP 2360, and covid-19 antigen negative. Flu swab also negative. CXR shows
interstitial pneumonitis with increased GGO in RUL. Pt was started on steroids and Abx, and admitted to telemetry under the hospitalist. Pulmonary service now consulted for additional management/recommendations.
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
HLD, prostate cancer s/p SBRT (02/2016)
Impression:
#Acute on chronic respiratory failure with hypoxia
#IPF with suspected flare
#MARLON � resolved
#Elevated troponin likely due to demand ischemia/type II LA � peaked at 0.038 on 01/14
#Moderate-severe restrictive lung disease (T% predicted via PFT from 08/2022)
#Severe ARAVIND (AHI: 34.1 with casey SpO2 71% via HSAT from 08/2024)
#Chronic HFpEF/diastolic heart failure
#A-fib s/p DCCV x2 + ablation x2 now in NSR
#Hx of prostate cancer s/p SBRT (02/2016)
#Hx of moderate-severe aortic stenosis s/p bioprosthetic AVR (05/2017)
#CAD s/p CABG x2 (05/2017)
#HTL
#HLD
#Former tobacco smoker
Plan:
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
- He also had been hearing himself wheeze, and his absolute eosinophils on admission were 400 (range is 300-500) --> he does not use inhalers at home as they have not made him breathe better in the past
- He was wheezing on admission, although this has now resolved --> continue DuoNebs QID and continue prn DuoNebs for breakthrough symptoms; he may have underlying RAD
- He has increased opacification in the right upper lobe seen on CXR
- Although his WBC is WNL at 10.4, continue empirical treatment for pneumonia
- Also appropriate to treat with systemic steroids for a possible ILD flare (plus he was wheezing)
- Follow up infectious workup with sputum culture and check blood cultures; Legionella/pneumonia urine antigens both negative
- Aspiration precautions
- Continue with supplemental oxygen and titrate to maintain SpO2 >90-94%; he will need a home O2 assessment prior to discharge to re-assess O2 needs
- Continue Ofev
- Troponin has peaked at 0.038 on 01/14 to no longer need to continue trending at this time
- proBNP is elevated at 2360, and on admission in the ER, he had mild edema on RLE but he says this is chronic. He does not appear overloaded on exam - continue to monitor and consider trial of IV lasix if hypoxia worsens or fails to improve
despite ABx and steroids; interestingly, his RLE edema is now resolved, and he has trace on the LLE now (on 01/15)
- He does take lasix 20mg daily at home - ok to resume now that MARLON has resolved
- Recommend to repeat echo as last performed in February 2024 showing Stage II diastolic dysfunction with no regional WMA and LVEF 65-70%
- Renally dose all meds/ABx
- Trend UOP, sCr, [K] levels and I/O
- Incentive spirometer encouraged q1hr while awake
- He does have a Hx of severe ARAVIND - would consider using CPAP with sleep if he is amenable to this
- Replete electrolytes with K>4, Mg>2
- Trend H/H and transfuse if needed to keep Hb>7g/dL; keep plt>20k, unless there is concern for bleeding then keep plt>50k
- Maintain euglycemia with goal BG >100 and <180
- DVT ppx: Xarelto
Pulmonary service will continue to follow along. Will assure he has follow up arranged with Dr. Rubio upon discharge.
Data:
CXR 01/14/2025:
1. 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
2. Interval increase in a large amount of ground-glass opacity in the right upper lobe which is likely acute inflammatory pneumonitis. Right upper lobe pneumonia is an alternative diagnostic possibility if there are signs/symptoms of infection
(probably less likely).
3. Mildly decreased bilateral lung volumes.
4. Mild cardiomegaly.
5. Previous CABG surgery and surgical aortic valve replacement.
Total time spent today was 38 minutes for this encounter. Time includes reviewing laboratory test/imaging results, reviewing pertinent medical records, obtaining and reviewing medical history, performing an appropriate exam, ordering medications,
tests and procedures. Time also includes documentation of this encounter, coordinating patient care and communicating with other healthcare professionals. Total time does not include separately billed tests performed on this date of service.
Subjective Data
-
Date of Service:
Date of Service: January 15, 2025
Chief Complaint: Pulmonary Follow Up
Subjective:
Patient was seen and evaluated today at bedside (late note entry). He is starting to feel much better, feeling less restricted with his breathing overall. Currently on 3 L/min nasal cannula saturating 94%. Has an occasional cough which is now
dry. Denies chest pain, PEPE, nausea, fevers or chills.
Review of Systems
General: Other (Negative unless mentioned above)
Objective Data
Data Reviewed
Vital Signs / I&O / Oxygen:
Vital Signs
Temp Pulse Resp BP Pulse Ox
98.1 F 68 15 123/83 96
01/15/25 07:30 01/15/25 08:27 01/15/25 08:09 01/15/25 08:27 01/15/25 08:30
Intake and Output
01/14/25 01/15/25 01/16/25
06:59 06:59 06:59
Intake Total 440 / 440
Output Total 400 / 400
Balance 40 / 40
SaO2 96
Nasal Cannula flow liters per 4
minute
Physical Exam
General: Respiratory Distress (negative), Comfortable, Chills (negative) and Sweats (negative)
HEENT: Normocephalic and Anicteric
Cardiovascular: S1-S2, Murmur (NADIRA appreciated across precordium) and Peripheral Edema (Trace left lower extremity edema, no edema appreciated on RLE)
Respiratory: Wheeze (negative), Crackles (Bilateral), Rhonchi (Bilateral) and Non-Labored Respirations
GI: Soft, Non Distended and Normal Bowel Sounds
Neurology: AO x 3 and Tremors (negative)
Skin: Warm, Dry, Cyanosis (negative) and Jaundice (negative)
Labs/Micro/Reports
Lab Data
01/15/25 06:45
Microbiology
01/15/25 02:47 Urine Legionella Urinary Antigen - Final
Negative for Legionella pneumophila Serogroup 1 antigen.
A negative result does not rule out the possiblity of
Legionella infection due to other serogroups or species of
Legionella. Clinical correlation is recommended.
01/15/25 02:47 Urine Streptococcus pneumoniae Antigen (M - Final
Negative for Streptococcus pneumoniae antigen.
A negative result does not exclude infection with
Streptococcus pneumoniae. Clinical correlation is
recommended.
01/14/25 17:16 Nasal Swab Influenza Types A & B (MARK) - Final
Negative for Influenza A & B, NAAT
Negative results must be combined with clinical observations
and patient history.
Nucleic Acid Amplification test (NAAT)performed on the
[employer] platform.
[2025-01-15] MEDS: STERILE WATER FOR INJECTION 10 ML IV (17:13)
[2025-01-15] MEDS: ROCEPHIN 1000 MG IV (17:13)
[2025-01-15 17:49] LABS: Blood Urea Nitrogen 39 mg/dl (9-20); Calcium 9.2 mg/dl (8.4-10.2); Carbon Dioxide 25 mmol/L (22-30); Chloride 108 mmol/L (98-107); Estimated Creatinine Clearance 52 ml/min; Glucose 152 mg/dl (70-99); Potassium 4.3 mmol/L (3.5-5.1); Sodium 144 mmol/L (135-145); eGFR 56.58
[2025-01-15] MEDS: NON-FORMULARY ITEM 150 MG PO (22:37)
[2025-01-16] MEDS: DUONEB INH (01:09)
[2025-01-16 03:50] VITALS: BP 118/74
[2025-01-16 04:45] VITALS: BMI 30.6
[2025-01-16] MEDS: DECADRON 4 MG IV ×2 (05:28→17:22)
[2025-01-16 06:39] LABS: % Basophils 0.1 % (0-2); % Immature Granulocytes 0.6 % (0-0.5); % Lymphocytes 5.4 % (20.5-51.1); % Neutrophils 91.9 % (42.2-75.2); Absolute Immature Granulocytes 0.1 10^3/uL (0-0.05); Absolute Monocytes 0.4 10^3/uL (0.1-0.6); Absolute Neutrophils 16.4 10^3/uL (1.4-6.5); Hematocrit 47.6 % (39.0-52.0); Hemoglobin 14.6 g/dL (13.0-18.0); Mean Corp Hgb Conc. 30.7 g/dL (33.0-37.0); Mean Corpuscular Hgb 30.4 pg (27.0-31.0); Mean Platelet Volume 10.4 fL (7.4-10.4); Nucleated Red Blood Cells % 0 % (-); Platelet Count 209 10^3/uL (130-400); Red Blood Cell Count 4.81 10^6/uL (4.70-6.10); Red Cell Dist. Width 15.9 % (11.5-14.5); White Blood Cell Count 17.9 10^3/uL (4.8-10.8)
[2025-01-16 06:57] LABS: ALT (SGPT) 17 U/L (0-50); AST (SGOT) 24 U/L (17-59); Albumin 3.8 g/dl (3.5-5.0); Alkaline Phosphatase 49 U/L (38-126); Blood Urea Nitrogen 42 mg/dl (9-20); Carbon Dioxide 25 mmol/L (22-30); Chloride 108 mmol/L (98-107); Estimated Creatinine Clearance 48 ml/min; Glucose 114 mg/dl (70-99); Magnesium 2.1 mg/dl (1.6-2.3); Sodium 146 mmol/L (135-145); Total Bilirubin 0.7 mg/dl (0.2-1.3); Total Protein 6.7 g/dl (6.3-8.2); eGFR 51.77
[2025-01-16 07:17] VITALS: BP 148/90
[2025-01-16] MEDS: DUONEB 3 ML INH ×4 (07:30→20:34)
[2025-01-16] MEDS: LASIX 40 MG IV (07:47)
[2025-01-16] MEDS: TOPROL XL 100 MG PO (07:48)
[2025-01-16] MEDS: TRICOR 48 MG PO (07:48)
[2025-01-16] MEDS: VIBRAMYCIN 100 MG PO ×2 (07:49→20:44)
[2025-01-16] MEDS: CARDIZEM CD 180 MG PO (07:49)
[2025-01-16] MEDS: THERAGRAN 1 TABLET PO (07:49)
[2025-01-16] MEDS: XARELTO 15 MG PO (07:49)
[2025-01-16] MEDS: MUCINEX 600 MG PO ×2 (07:50→20:44)
[2025-01-16] MEDS: IMDUR (EXTENDED RELEASE) 30 MG PO (07:50)
--- NOTE | 2025-01-16 10:24 | W.PN.HOSP.TC ---
Today's Communication/Plan
-
cont steroids, IV lasix
labs in AM
Echo in AM
wean off O2
Assessment / Plan
Assessment / Plan
79yo M with PMHx of carotis stensis s/p r CEA, CAD s/p CABG, Afib on Xarelto, bioprosthetic AV (as per Echo at summer 2023 - gradient increased from 7 to 22), HFpEF grade 2 diastolic dysfunction, HTN, HLD, ILD on 2L home O2 as needed came with few
weeks of worsening SOB started when he traveled to [facility] for a fishing. He took his concentrator with him and since started to experience dyspnea - used it, but as per patient his pulse O2 duid not go above 75% and he was concerned if
concentrator actually was working. Upon return he came to ED due to persistent dyspnea and staretd on treatment for ILD with possible pneumonia and CHF exacerbation
A/P:
#Acute idiopatic ILD flare with most likely UIP anthony possible RUL pneumonia
restrictive pattern on outpatient PFT
follows with
Pulm consult: steroids, bronchodilators, Ceftriaxone/Doxy
Wean off O2
CM for appropriate home f/u to make sure that concerntrator is working before d/c
#Acute on chronic HFpEF
#Bioprosthetic AV
#Afib, paroxysmal
#Essential HTN
#Elevated trop - non-ischemic myocardial injury 2/2 hypoxia
Troponin improved to normal
EKG without ACS findings
Elevated BNP on admission
Lasix PRN, daily weight and follow electrolytes
cont Xarelto
telemetry
cont BB
Cardio consult
Echo
#Hypernatremia
#MARLON on admission
#Hyperkalemia
Lasix
follow BMP
stop ACEi
follow Cr - baseline 1.1-1.2
#HLD
cont home meds
DVt ppx Xarelto
Full code
I have spent at least 59min reviewing chart, test results, communication with consultantants and providing direct patient care
Anticipated Discharge: > 48 hours
Subjective/Interval History
-
Date of Service: January 16, 2025
Objective Data
-
Labs:
Laboratory Results
01/16/25
04:21
WBC 17.9 H
Hgb 14.6
Hct 47.6
Plt Count 209
Sodium 146 H
Potassium 5.0
Chloride 108 H
Carbon Dioxide 25
BUN 42 H
Creatinine 1.4 H
Glucose 114 H
Calcium 9.0
Total Bilirubin 0.7
AST 24
ALT 17
Alkaline Phosphatase 49
Vital Signs:
Vital Signs
Temp Pulse Resp BP Pulse Ox
97.6 F 76 16 149/70 95
01/16/25 07:17 01/16/25 07:48 01/16/25 07:37 01/16/25 07:48 01/16/25 07:55
I&O
01/15/25 01/16/25 01/17/25
06:59 06:59 06:59
Intake Total 440 / 440 270 / 270 240 / 240
Output Total 400 / 400 900 / 900
Balance 40 / 40 270 / 270 -660 / -660
Review of Systems
-
History Source: Patient
All other systems: Reviewed and negative
Physical Exam
-
General: No Apparent Distress
HEENT: Normocephalic
Respiratory: Crackles
Cardiac: Regular Rhythm
GI: Soft, Nontender and Nondistended
Neuro: Awake, Alert, Oriented and AO x 3
Psych: Calm
[2025-01-16 11:40] VITALS: BP 103/55
--- NOTE | 2025-01-16 13:19 | W.PN.CD ---
Today's Communication / Plan
-
- I had thought of just continuing his daily Lasix at home PO dosing and increasing if he does not respond to pulmonary treatment.
- He is now on IV diuresis
- Monitor Cr with the increased diuresis
- If CrCl stays <50 will decrease Xarelto dose
- Lisinopril on hold (MARLON)
- Update echo
Impression / Plan
-
Background: 79M with CAD status post CABG x 2, bioprosthetic aortic valve replacement, paroxysmal atrial fibrillation (status post ablation 2020, 2021; on rivaroxaban), dyslipidemia, right CEA, moderate left carotid artery stenosis, former smoker,
and restrictive lung disease/pulmonary interstitial fibrosis and stage II adenocarcinoma of the prostate in remission who presented to the emergency department with a chief complaint of shortness of breath. Cardiology was consulted for concern of
heart failure.
LA pressure measured at PVI 03/2022: LA 16 mmHg at baseline, raising to 20 at end of procedure. LA pressure 02/2021: 11 at start and after PVI kathleen to 14 mmHg. He has no edema, abdominal distension, PND, or orthopnea.
I do not feel that heart failure is adding an acute component to his chronic respiratory symptoms but I have no objection to pushing diuresis to see respnons. He is on Lasix 20 mg daily as outpatient.
Outpatient cleaner wall Dr. Harper
Acute on chronic hypoxic respiratory insufficiency in the setting of acute idiopathic ILD flare
- Pulmonary involved
- Restrictive pattern per outpatient PFT
- Antibiotics and steroids for pulmonary
- O2 being weaned as tolerated
- pBNP 01/14/2025 was 2360, grade II diastolic dysfxn on echo 02/2024
- Hospitalist has him on IV Lasix 40 daily (home dose is 20 PO daily)
MARLON on CKD => a bit worse with the increased diuresis and active lung disease
- Follow with increased diuresis
- Lisinopril on hold
Hx of severe aortic stenosis s/p bioprosthetic AVR, bio AVR good in 02/2024
- Peak/mean gradients 25/15 mmHg without AR on TTE 02/2024
- Update echo 01/17/2025
Paroxysmal atrial fibrillation
- In sinus rhythm on metoprolol and diltiazem, continue
- Oral anticoagulation: Rivaroxaban 20 mg (creatinine clearance 52) => watch for need to decrease Xarelto
Coronary artery disease s/p CABG x 2 (TERRY�LAD, SVG�OM 3; RCA not bypassed due to small vessel size) 05/27/2017
- Stable without chest pain
- On Xarelto for paroxysmal atrial fibrillation, no ASA secondary to prior nosebleeding
Hypertension, chronic, stable, may need to decrease lisinopril for hyperkalemia
Former smoker, continued cessation recommended
Carotid artery stenosis, followed by vascular surgery
Stage II adenocarcinoma the prostate, in remission
SUBJECTIVE:
Feels better
DATA:
Transthoracic echocardiogram, 02/27/2024:
CONCLUSIONS
Normal biventricular size and systolic function without regional wall motion
abnormality.
Stage II diastolic dysfunction suggestive of abnormal relaxation and increased
filling pressures.
Well seated, normally functioning, bioprosthetic aortic valve replacement with
peak/mean gradients of 25/15 mmHg. No aortic regurgitation.
Compared to prior study of 10/01/21, the mean gradient across the aortic
bioprosthetic valve was 7mmHg and is now 15mmHg.
Physical Exam
Vital Signs/Labs
Vital Signs
Temp Pulse Resp BP Pulse Ox
97.7 F 64 20 103/55 95
01/16/25 11:40 01/16/25 11:40 01/16/25 11:40 01/16/25 11:40 01/16/25 12:38
01/15/25 01/16/25 01/17/25
06:59 06:59 06:59
Actual Weight 91.739 kg 91.399 kg
01/16/25 04:21
01/16/25 04:21
Magnesium 2.1 mg/dl (1.6-2.3) 01/16/25 04:21
TSH 4.44 uIU/ml (0.47-4.68) 01/14/25 13:59
01/14/25
13:59
Qqb-V-Bqeubsxxjxf Pept 2360
LAB Results
01/14/25 01/14/25 01/15/25
13:59 20:02 02:08
Troponin I 0.038 H* 0.033 0.029
01/15/25 01/15/25
06:45 12:45
Troponin I 0.020 D Cancelled
Physical Exam
Constitutional: No acute distress
EENT: Anicteric
Cardiovascular: Rhythm & rate is regular, Pedal edema is absent and JVD pressure is normal
Respiratory: Respiratory effort normal and Rhonchi Present
GI: Soft and Distention absent
Neuro/Psych: AO x 3
Data Reviewed
-
Date of Service: January 16, 2025
[2025-01-16 15:07] VITALS: BP 99/56
--- NOTE | 2025-01-16 15:32 | W.PN.PUL3 ---
Today's Communication / Plan
-
Continue DuoNebs
Systemic steroids with wean as he clinically improves
Lasix
Up OOB as tolerated
Continue Ofev
Xarelto
Antibiotics with ceftriaxone/doxycycline
Echo pending for tomorrow
Outpatient follow-up will be arranged
Pulmonary service will continue to follow along; believe patient will be ready for discharge in the next 1 to 2 days, hopefully tomorrow
Assessment
-
Assessment: 79-year-old former tobacco smoker with a PMHx of IPF on Ofev, chronic hypoxic respiratory failure on 3L/min used with activity, A-fib s/p DCCV x2 and ablation x2 on Xarelto now in NSR, carotid artery stenosis s/p right-sided CEA, CAD
s/p CABG x2, AV stenosis s/p bioprosthetic AVR, HTN, HLD and prostate cancer s/p SBRT who p/w SOB, cough and low oxygen levels. Here today with his , Kiki. He has had a cough for several weeks now, and has been productive of brown phlegm
mixed with blood. As his cough improved, he became increasingly SOB. He hears himself wheezing sometimes. He does not use inhalers as they 'never made him breathe better.' He wears O2 at home at 3L/min with activity and prn, and has been
wearing his O2 more as of late due to SOB. He recently went on a fishing trip with his friends in [facility]. Prior to leaving, his oxygen levels would be in 60-70s, but he went on this trip regardless. In the ER, he was afebrile to 97.7F, HR
61, BP 116/74 and saturating 81% on 3L/min, which kathleen to 95% on 4L/min. Labs showed WBC 10.4, Hb 15.4, absolute eosinophil count 400, Cr 1.5, K 5.3, troponin 0.038, proBNP 2360, and covid-19 antigen negative. Flu swab also negative. CXR shows
interstitial pneumonitis with increased GGO in RUL. Pt was started on steroids and Abx, and admitted to telemetry under the hospitalist. Pulmonary service now consulted for additional management/recommendations.
Chronic conditions LANGUAGE PATHOLOGIST: IPF, restrictive lung disease, A-fib on xarelto s/p ablation x2 (02/2021 + 03/2022) with Hx of DCCV x2, bilateral carotid artery stenosis s/p R-CEA (04/2019), aortic stenosis s/p bioprosthetic AVR, CAD s/p CABG x2 (05/2017), HTN,
HLD, prostate cancer s/p SBRT (02/2016)
Impression:
#Acute on chronic respiratory failure with hypoxia
#IPF with suspected flare
#MARLON
#Elevated troponin likely due to demand ischemia/type II [place] � peaked at 0.038 on 01/14
#Moderate-severe restrictive lung disease (T% predicted via PFT from 08/2022)
#Severe ARAVIND (AHI: 34.1 with casey SpO2 71% via HSAT from 08/2024)
#Chronic HFpEF/diastolic heart failure
#A-fib s/p DCCV x2 + ablation x2 now in NSR
#Hx of prostate cancer s/p SBRT (02/2016)
#Hx of moderate-severe aortic stenosis s/p bioprosthetic AVR (05/2017)
#CAD s/p CABG x2 (05/2017)
#HTL
#HLD
#Former tobacco smoker
Plan:
- Patient had worsening hypoxia, a productive cough and worsening SOB that had been progressively worsening over the last several days/weeks LANGUAGE PATHOLOGIST
- He also had been hearing himself wheeze, and his absolute eosinophils on admission were 400 (range is 300-500) --> he does not use inhalers at home as they have not made him breathe better in the past
- He was wheezing on admission, although this has now resolved --> continue DuoNebs QID and continue prn DuoNebs for breakthrough symptoms; he may have underlying RAD
- He has increased opacification in the right upper lobe seen on CXR
- Although his WBC is WNL at 10.4, continue empirical treatment for pneumonia
- Also appropriate to continue treatment with systemic steroids for a suspected ILD flare (plus he was wheezing on admission)
- Follow up infectious workup with sputum culture and check blood cultures; Legionella/pneumonia urine antigens both negative
- Aspiration precautions
- Maintain SpO2 >90-94% - now on room air as of 01/16; he will need a home O2 assessment prior to discharge to re-assess O2 needs
- Continue Ofev
- Troponin has peaked at 0.038 on 01/14 to no longer need to continue trending at this time
- proBNP is elevated at 2360, and on admission in the ER, he had mild edema on RLE but he says this is chronic. He does not appear overloaded on exam - continue to monitor and consider trial of IV lasix if hypoxia worsens or fails to improve
despite ABx and steroids; interestingly, his RLE edema is now resolved, and he has trace on the LLE now (on 01/15)
- He does take lasix 20mg daily at home - ok to resume now that MARLON has resolved although continue o monitor UOP and sCr
- Recommend to repeat echo as last performed in February 2024 showing Stage II diastolic dysfunction with no regional WMA and LVEF 65-70%
- Renally dose all meds/ABx
- Trend UOP, sCr, [K] levels and I/O
- Incentive spirometer encouraged q1hr while awake
- He does have a Hx of severe ARAVIND - would consider using CPAP with sleep if he is amenable to this
- Replete electrolytes with K>4, Mg>2
- Trend H/H and transfuse if needed to keep Hb>7g/dL; keep plt>20k, unless there is concern for bleeding then keep plt>50k
- Maintain euglycemia with goal BG >100 and <180
- DVT ppx: Xarelto
Pulmonary service will continue to follow along. Will assure he has follow up arranged with Dr. Rubio upon discharge.
Data:
CXR 01/14/2025:
1. 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
2. Interval increase in a large amount of ground-glass opacity in the right upper lobe which is likely acute inflammatory pneumonitis. Right upper lobe pneumonia is an alternative diagnostic possibility if there are signs/symptoms of infection
(probably less likely).
3. Mildly decreased bilateral lung volumes.
4. Mild cardiomegaly.
5. Previous CABG surgery and surgical aortic valve replacement.
Total time spent today was 41 minutes for this encounter. Time includes reviewing laboratory test/imaging results, reviewing pertinent medical records, obtaining and reviewing medical history, performing an appropriate exam, ordering medications,
tests and procedures. Time also includes documentation of this encounter, coordinating patient care and communicating with other healthcare professionals. Total time does not include separately billed tests performed on this date of service.
Subjective Data
-
Date of Service:
Date of Service: January 16, 2025
Chief Complaint: Pulmonary Follow Up
Subjective:
Patient seen and evaluated today at bedside (late note entry). Feels much better today. Still has a dry cough but no shortness of breath even with activity. Currently on room air saturating 93%. Denies chest pain, PEPE, nausea, fevers or chills.
Review of Systems
General: Other (Negative unless mentioned above)
Objective Data
Data Reviewed
Vital Signs / I&O / Oxygen:
Vital Signs
Temp Pulse Resp BP Pulse Ox
97.6 F 76 16 149/70 95
01/16/25 07:17 01/16/25 07:48 01/16/25 07:37 01/16/25 07:48 01/16/25 07:55
Intake and Output
01/15/25 01/16/25 01/17/25
06:59 06:59 06:59
Intake Total 440 / 440 270 / 270 240 / 240
Output Total 400 / 400 900 / 900
Balance 40 / 40 270 / 270 -660 / -660
SaO2 95
Nasal Cannula flow liters per 3
minute
Physical Exam
General: Respiratory Distress (negative), Comfortable, Chills (negative) and Sweats (negative)
HEENT: Normocephalic and Anicteric
Cardiovascular: S1-S2, Murmur (NADIRA appreciated across precordium) and Peripheral Edema (negative)
Respiratory: Wheeze (negative), Crackles (Bilateral (much improved)), Rhonchi (Bilateral) and Non-Labored Respirations
GI: Soft, Non Distended and Normal Bowel Sounds
Neurology: AO x 3 and Tremors (negative)
Skin: Warm, Dry, Cyanosis (negative) and Jaundice (negative)
Labs/Micro/Reports
Lab Data
01/16/25 04:21
01/16/25 04:21
Microbiology
01/15/25 08:35 Sputum Gram Stain - Preliminary
01/15/25 02:47 Urine Legionella Urinary Antigen - Final
Negative for Legionella pneumophila Serogroup 1 antigen.
A negative result does not rule out the possiblity of
Legionella infection due to other serogroups or species of
Legionella. Clinical correlation is recommended.
01/15/25 02:47 Urine Streptococcus pneumoniae Antigen (M - Final
Negative for Streptococcus pneumoniae antigen.
A negative result does not exclude infection with
Streptococcus pneumoniae. Clinical correlation is
recommended.
01/14/25 17:16 Nasal Swab Influenza Types A & B (MARK) - Final
Negative for Influenza A & B, NAAT
Negative results must be combined with clinical observations
and patient history.
Nucleic Acid Amplification test (NAAT)performed on the
[employer] platform.
--- NOTE | 2025-01-16 17:08 | CM ---
Met with patient and his at bedside to obtain information for assessment. Patient stated that he lives with his in a one story home with a ramp to enter. He described himself as independent with his ADLs, personal care, dressing and
bathing. 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 He is driving and can get to his appointments and do all of his own shopping. Patient has o2 and uses it has needed.
Patient has a prescription plan and uses, the [facility] in [place] for all of his medications.
His PCP is, Shay Fernandez.
Plan: Case management will continue to follow and assist with discharge planning. Patient would like to return home with when stable for discharge.
[2025-01-16] MEDS: ROCEPHIN 1000 MG IV (17:22)
[2025-01-16] MEDS: STERILE WATER FOR INJECTION 10 ML IV (17:22)
[2025-01-16 19:30] VITALS: BP 105/66
[2025-01-16] MEDS: NON-FORMULARY ITEM 150 MG PO (21:00)
[2025-01-16 23:54] VITALS: BP 115/73
[2025-01-17 03:20] VITALS: BP 111/69
[2025-01-17] MEDS: DECADRON 4 MG IV (05:44)
[2025-01-17 06:00] VITALS: BMI 30.6
[2025-01-17 07:30] VITALS: BP 147/91
[2025-01-17 07:54] LABS: % Basophils 0.1 % (0-2); % Immature Granulocytes 0.6 % (0-0.5); % Lymphocytes 4.7 % (20.5-51.1); % Monocytes 2.3 % (1.7-9.3); % Neutrophils 92.3 % (42.2-75.2); Absolute Immature Granulocytes 0.1 10^3/uL (0-0.05); Absolute Lymphocytes 0.9 10^3/uL (1.2-3.4); Absolute Monocytes 0.4 10^3/uL (0.1-0.6); Absolute Neutrophils 16.9 10^3/uL (1.4-6.5); Hematocrit 50.7 % (39.0-52.0); Hemoglobin 15.5 g/dL (13.0-18.0); Mean Corp Hgb Conc. 30.6 g/dL (33.0-37.0); Mean Corpuscular Volume 98.3 fL (80.0-94.0); Mean Platelet Volume 10.1 fL (7.4-10.4); Nucleated Red Blood Cells % 0 % (-); Platelet Count 233 10^3/uL (130-400); Red Blood Cell Count 5.16 10^6/uL (4.70-6.10); Red Cell Dist. Width 16.4 % (11.5-14.5); White Blood Cell Count 18.3 10^3/uL (4.8-10.8)
--- NOTE | 2025-01-17 07:56 | W.PN.HOSP.TC ---
Addendum entered and electronically signed by Dane Gifford MD 01/17/25 15:29:
I saw and evaluated the patient. I reviewed the resident�s note and agree with findings and plan as documented in the resident�s note except for changes in my documentation.
Original Note:
Today's Communication/Plan
-
-ECHO pending to be obtained
-Discharge planning based on echo results
-Continue Xarelto at 15 mg given Cr Cl 48
-Continue furosemide at 20 mg
-Complete 7 days of antibiotic course for CAP
Assessment / Plan
Assessment / Plan
79yo M with PMHx of carotis stensis s/p r CEA, CAD s/p CABG, Afib on Xarelto, bioprosthetic AV (as per Echo at summer 2023 - gradient increased from 7 to 22), HFpEF grade 2 diastolic dysfunction, HTN, HLD, ILD on 2L home O2 as needed came with few
weeks of worsening SOB started when he traveled to [facility] for a fishing. He took his concentrator with him and since started to experience dyspnea - used it, but as per patient his pulse O2 did not go above 75% and he was concerned if
concentrator actually was working. Upon return he came to ED due to persistent dyspnea and started on treatment for ILD with possible pneumonia and CHF exacerbation. Seen by cardiology and pulmonology
A/P:
#Acute on chronic respiratory failure with hypoxia
-Hx of idiopathic ILD- possibly flare with most likely UIP with possible RUL pneumonia
-Chest X ray 01/14/25: SEVERE INFLAMMATORY INTERSTITIAL PNEUMONITIS in the lungs most consistent with usual interstitial pneumonitis (UIP) and Interval increase in a large amount of ground-glass opacity in the right upper lobe which is likely acute
inflammatory pneumonitis suggesting Right upper lobe pneumonia
-covid-19 antigen negative/ Flu negative
-Continue on
-Outpatient PFT: restrictive pattern- follows with --Moderate-severe restrictive lung disease (T% predicted via PFT from 08/2022)
-Pulmonology on board recommending tapering steroids- continue to bronchodilators and Ceftriaxone/Doxy -complete 7 days of antibiotic course per pulm
-CM for appropriate home f/u to make sure that concentrator is working before d/c
#Acute on chronic HFpEF
-ProBNP was found elevated to 2360 at admission- no clinical finding for volume overload
- Last echo 02/26/25: Normal biventricular size and systolic function without regional wall motion abnormality. Stage II diastolic dysfunction suggestive of abnormal relaxation and increased filling pressures. Well seated, normally functioning,
bioprosthetic aortic valve replacement with peak/mean gradients of 25/15 mmHg. No aortic regurgitation. Compared to prior study of 10/01/21, the mean gradient across the aortic bioprosthetic valve was 7mmHg and is now 15mmHg.
-New Echo pending to be obtained
-Hx of CAD: no ASA secondary to prior nosebleeding
-Started on Furosemide 20 ms home dose as MARLON resolved: Lasix PRN, daily weight and follow electrolytes
#MARLON on CKD at admission
-Resolved
-follow Cr - baseline 1.1-1.2
#Afib, paroxysmal
-In sinus rhythm- monitor telemetry
-Continue metoprolol and diltiazem
-On Xeralto 15 mg ((creatinine clearance 48)
-Cardio on board: Recommended decrease Xarelto dose from 20 mg If CrCl stays <50
#Essential HTN
-Lisinopril on hold due MARLON and per cardio recc given acute renal insufficiency and blood pressure limitations
#Hx of moderate-severe aortic stenosis s/p bioprosthetic AVR (05/2017)
#Elevated trop - non-ischemic myocardial injury possibly deu hypoxia
-Troponin improved to normal
-EKG without ACS findings
#Hypernatremia
-Resolved
#Hyperkalemia
-Resolved
Hold ACEI for now
#HLD
-cont fenofibrate
DVt ppx Xarelto
Full code
Anticipated Discharge: 24 - 48 hours
Subjective/Interval History
-
Date of Service: January 17, 2025
Patient reports feeling good and denies shortness of breath. He has been saturation >90 on RA this morning.He was weaned form supplemental oxygen yesterday.
Objective Data
-
Labs:
Laboratory Results
01/17/25
06:52
WBC 18.3 H
Hgb 15.5
Hct 50.7
Plt Count 233
Sodium Pending
Potassium Pending
Chloride Pending
Carbon Dioxide Pending
BUN Pending
Creatinine Pending
Glucose Pending
Calcium Pending
Total Bilirubin Pending
AST Pending
ALT Pending
Alkaline Phosphatase Pending
Vital Signs:
Vital Signs
Temp Pulse Resp BP Pulse Ox
97.3 F 73 20 111/69 91
01/17/25 03:20 01/17/25 03:20 01/17/25 03:20 01/17/25 03:20 01/17/25 03:20
I&O
01/16/25 01/17/25 01/18/25
06:59 06:59 06:59
Intake Total 270 / 270 240 / 240
Output Total 1750 / 1750
Balance 270 / 270 -1510 / -1510
Review of Systems
-
History Source: Patient
Constitutional: Reports No Symptoms
EENT: Reports No Symptoms Reported
Respiratory: Reports No Symptoms
Cardiac: Reports No Symptoms
Abdomen/GI: Reports No Symptoms
Genitourinary: Reports No Symptoms
Musculoskeletal: Reports No Symptoms
Skin: Reports No Symptoms
Neuro: Reports No Symptoms
Physical Exam
-
General: Well Developed, Well Nourished and Obese
HEENT: Normocephalic and Atraumatic
Respiratory: Rhonchi (Bilateral), Crackles (On bilateral basal lung) and Non Labored Respirations
Cardiac: Regular Rhythm, S1/S2 and Murmur
GI: Soft, Nontender and Nondistended
Musculoskeletal: No Clubbing, No Cyanosis and No Edema
Skin: Warm
Neuro: Awake, Alert, Oriented and AO x 3
[2025-01-17 08:04] LABS: ALT (SGPT) 18 U/L (0-50); AST (SGOT) 22 U/L (17-59); Albumin 4.3 g/dl (3.5-5.0); Alkaline Phosphatase 50 U/L (38-126); Blood Urea Nitrogen 46 mg/dl (9-20); Calcium 9.8 mg/dl (8.4-10.2); Carbon Dioxide 26 mmol/L (22-30); Chloride 106 mmol/L (98-107); Estimated Creatinine Clearance 52 ml/min; Glucose 112 mg/dl (70-99); Potassium 4.5 mmol/L (3.5-5.1); Sodium 145 mmol/L (135-145); Total Bilirubin 0.8 mg/dl (0.2-1.3); Total Protein 7.3 g/dl (6.3-8.2); eGFR 56.58
--- NOTE | 2025-01-17 08:10 | W.PN.CD ---
Today's Communication / Plan
-
- Received Lasix 40 mg IV daily; now back on home dose of 20 mg PO daily.
- Do not resume lisinopril given acute renal insufficiency and blood pressure limitations.
- Echocardiogram today; if no change, can follow-up with Cardiology as an outpatient.
Impression / Plan
-
Background: 79M with CAD status post CABG x 2, bioprosthetic aortic valve replacement, paroxysmal atrial fibrillation (status post ablation 2020, 2021; on rivaroxaban), dyslipidemia, right CEA, moderate left carotid artery stenosis, former smoker,
and restrictive lung disease/pulmonary interstitial fibrosis and stage II adenocarcinoma of the prostate in remission who presented to the emergency department with a chief complaint of shortness of breath. Cardiology was consulted for concern of
heart failure.
LA pressure measured at PVI 03/2022: LA 16 mmHg at baseline, raising to 20 at end of procedure. LA pressure 02/2021: 11 at start and after PVI kathleen to 14 mmHg.
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
Acute on chronic hypoxic respiratory insufficiency in the setting of acute idiopathic ILD flare
- Continue recommendations as per Pulmonary; on antibiotics and steroids.
- Restrictive pattern per outpatient PFT
Acute HFpEF:
- pBNP 01/14/2025 was 2360, grade II diastolic dysfxn on echo 02/2024.
- Received Lasix 40 mg IV daily; now back on home dose of 20 mg PO daily.
MARLON on CKD => a bit worse with the increased diuresis and active lung disease
- Do not resume lisinopril given acute renal insufficiency and blood pressure limitations.
Hx of severe aortic stenosis s/p bioprosthetic AVR, bio AVR good in 02/2024
- Peak/mean gradients 25/15 mmHg without AR on TTE 02/2024
- Echocardiogram today; if no change, can follow-up with Cardiology as an outpatient.
Paroxysmal atrial fibrillation
- Remains in sinus rhythm.
- Continue Cardizem CD and Toprol-XL.
- Oral anticoagulation: Rivaroxaban 15 mg (creatinine clearance 48).
Coronary artery disease s/p CABG x 2 (PAUL, SVG�OM 3; RCA not bypassed due to small vessel size) 05/27/2017
- Stable; denies any anginal symptoms.
- On Xarelto for paroxysmal atrial fibrillation; no ASA secondary to prior .nosebleeding
Hypertension:
- Labile, but fairly stable/controlled.
- Do not resume lisinopril; continue other medications.
Former smoker, continued cessation recommended
Carotid artery stenosis, followed by vascular surgery
Stage II adenocarcinoma the prostate, in remission
SUBJECTIVE:
Feels better
DATA:
Transthoracic echocardiogram, 02/27/2024:
CONCLUSIONS
Normal biventricular size and systolic function without regional wall motion
abnormality.
Stage II diastolic dysfunction suggestive of abnormal relaxation and increased
filling pressures.
Well seated, normally functioning, bioprosthetic aortic valve replacement with
peak/mean gradients of 25/15 mmHg. No aortic regurgitation.
Compared to prior study of 10/01/21, the mean gradient across the aortic
bioprosthetic valve was 7mmHg and is now 15mmHg.
Physical Exam
Vital Signs/Labs
Vital Signs
Temp Pulse Resp BP Pulse Ox
97.3 F 73 20 111/69 91
01/17/25 03:20 01/17/25 03:20 01/17/25 03:20 01/17/25 03:20 01/17/25 03:20
01/16/25 01/17/25 01/18/25
06:59 06:59 06:59
Actual Weight 91.399 kg 91.172 kg
01/17/25 06:52
01/17/25 06:52
Magnesium 2.1 mg/dl (1.6-2.3) 01/16/25 04:21
TSH 4.44 uIU/ml (0.47-4.68) 01/14/25 13:59
01/14/25
13:59
Sba-G-Njwvblgmokl Pept 2360
LAB Results
01/14/25 01/14/25 01/15/25
13:59 20:02 02:08
Troponin I 0.038 H* 0.033 0.029
01/15/25 01/15/25
06:45 12:45
Troponin I 0.020 D Cancelled
Physical Exam
Constitutional: No acute distress and Comfortable
EENT: Anicteric
Cardiovascular: Rhythm & rate is regular, Pedal edema present (trace), Systolic murmur present (2/6) and S1S2 is normal
Respiratory: Respiratory effort normal and Rhonchi Present (Bibasilar)
GI: Soft and Non tender
Neuro/Psych: AO x 3
Other: Skin (Warm, dry, intact)
Data Reviewed
-
Date of Service: January 17, 2025
EKG: Tracing Personally Visualized and interpreted (Sinus rhythm)
Medical Tests (PFT, Pathology etc): Discussed with Patient
Labs: Labs Reviewed by me
[2025-01-17] MEDS: DUONEB 3 ML INH ×3 (08:16→15:31)
[2025-01-17] MEDS: CARDIZEM CD 180 MG PO (09:18)
[2025-01-17] MEDS: XARELTO 15 MG PO (09:18)
[2025-01-17] MEDS: MUCINEX 600 MG PO (09:19)
[2025-01-17] MEDS: IMDUR (EXTENDED RELEASE) 30 MG PO (09:19)
[2025-01-17] MEDS: LASIX 20 MG PO (09:19)
[2025-01-17] MEDS: TOPROL XL 100 MG PO (09:19)
[2025-01-17] MEDS: THERAGRAN 1 TABLET PO (09:19)
[2025-01-17] MEDS: VIBRAMYCIN 100 MG PO (09:19)
[2025-01-17] MEDS: TRICOR 48 MG PO (09:20)
[2025-01-17] MEDS: FLUSH (NSS) 1 FLUSH IV (09:21)
[2025-01-17 09:37] VITALS: BMI 30.6
[2025-01-17 11:09] VITALS: BP 130/76
--- NOTE | 2025-01-17 14:14 | W.PN.PUL3 ---
Today's Communication / Plan
-
Transition to prednisone 40 mg and decrease by 10 mg every 72 hours to off
Oral diuretics
Complete 7 days of antibiotics for community-acquired pneumonia
no need for [id number] nebulizers.
Okay for discharge today
Outpatient pulmonary follow-up in 2 weeks
Assessment
-
Assessment: 79-year-old former tobacco smoker with a PMHx of IPF on Ofev, chronic hypoxic respiratory failure on 3L/min used with activity, A-fib s/p DCCV x2 and ablation x2 on Xarelto now in NSR, carotid artery stenosis s/p right-sided CEA, CAD
s/p CABG x2, AV stenosis s/p bioprosthetic AVR, HTN, HLD and prostate cancer s/p SBRT who p/w SOB, cough and low oxygen levels. Here today with his , Kiki. He has had a cough for several weeks now, and has been productive of brown phlegm
mixed with blood. As his cough improved, he became increasingly SOB. He hears himself wheezing sometimes. He does not use inhalers as they 'never made him breathe better.' He wears O2 at home at 3L/min with activity and prn, and has been
wearing his O2 more as of late due to SOB. He recently went on a fishing trip with his friends in [facility]. Prior to leaving, his oxygen levels would be in 60-70s, but he went on this trip regardless. In the ER, he was afebrile to 97.7F, HR
61, BP 116/74 and saturating 81% on 3L/min, which kathleen to 95% on 4L/min. Labs showed WBC 10.4, Hb 15.4, absolute eosinophil count 400, Cr 1.5, K 5.3, troponin 0.038, proBNP 2360, and covid-19 antigen negative. Flu swab also negative. CXR shows
interstitial pneumonitis with increased GGO in RUL. Pt was started on steroids and Abx, and admitted to telemetry under the hospitalist. Pulmonary service now consulted for additional management/recommendations.
Chronic conditions [employer]: IPF, restrictive lung disease, A-fib on xarelto s/p ablation x2 (02/2021 + 03/2022) with Hx of DCCV x2, bilateral carotid artery stenosis s/p R-CEA (04/2019), aortic stenosis s/p bioprosthetic AVR, CAD s/p CABG x2 (05/2017), HTN,
HLD, prostate cancer s/p SBRT (02/2016)
Impression:
#Acute on chronic respiratory failure with hypoxia
#IPF with suspected flare
#MARLON
#Elevated troponin likely due to demand ischemia/type II WA � peaked at 0.038 on 01/14
#Moderate-severe restrictive lung disease (T% predicted via PFT from 08/2022)
#Severe ARAVIND (AHI: 34.1 with casey SpO2 71% via HSAT from 08/2024)
#Chronic HFpEF/diastolic heart failure
#A-fib s/p DCCV x2 + ablation x2 now in NSR
#Hx of prostate cancer s/p SBRT (02/2016)
#Hx of moderate-severe aortic stenosis s/p bioprosthetic AVR (05/2017)
#CAD s/p CABG x2 (05/2017)
#HTL
#HLD
#Former tobacco smoker
Plan:
- Patient had worsening hypoxia, a productive cough and worsening SOB that had been progressively worsening over the last several days/weeks [employer]
- He also had been hearing himself wheeze, and his absolute eosinophils on admission were 400 (range is 300-500) --> he does not use inhalers at home as they have not made him breathe better in the past
Clinically improved.
On room air
Not bronchospastic on exam 01/17/2025
No further nebulizers needed at discharge.
- He has increased opacification in the right upper lobe seen on CXR
- Although his WBC is WNL at 10.4, continue empirical treatment for pneumonia-complete 7 days for community-acquired pneumonia.
- Also appropriate to continue treatment with systemic steroids for a suspected ILD flare (plus he was wheezing on admission)-transition to prednisone 40 mg and decrease by 10 mg every 72 hours to off.
- Continue Ofev
Status post diuresis.
Cardiology has signed off and recommended outpatient follow-up
- Troponin has peaked at 0.038 on 01/14 to no longer need to continue trending at this time
- proBNP is elevated at 2360, and on admission in the ER, he had mild edema on RLE but he says this is chronic. He does not appear overloaded on exam.
- Recommend to repeat echo as last performed in February 2024 showing Stage II diastolic dysfunction with no regional WMA and LVEF 65-70%
-repeat echocardiogram pending.
-
- Incentive spirometer encouraged q1hr while awake-can continue until fully recovers.
-
- He does have a Hx of severe ARAVIND - would consider using CPAP with sleep if he is amenable to this
-
- DVT ppx: Xarelto
Outpatient follow-up with Dr. Rubio upon discharge.
Discharge planning today.
No additional recommendation
Sign off
Data:
CXR 01/14/2025:
1. 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
2. Interval increase in a large amount of ground-glass opacity in the right upper lobe which is likely acute inflammatory pneumonitis. Right upper lobe pneumonia is an alternative diagnostic possibility if there are signs/symptoms of infection
(probably less likely).
3. Mildly decreased bilateral lung volumes.
4. Mild cardiomegaly.
5. Previous CABG surgery and surgical aortic valve replacement.
Total time spent today was 41 minutes for this encounter. Time includes reviewing laboratory test/imaging results, reviewing pertinent medical records, obtaining and reviewing medical history, performing an appropriate exam, ordering medications,
tests and procedures. Time also includes documentation of this encounter, coordinating patient care and communicating with other healthcare professionals. Total time does not include separately billed tests performed on this date of service.
Subjective Data
-
Date of Service:
Date of Service: January 17, 2025
Chief Complaint: Pulmonary Follow Up (Acute on chronic hypoxemic respiratory failure-IPF flare)
Review of Systems
Cardiopulmonary: Dyspnea (Improved), Dyspnea on Exertion (Improved) and Cough (Improved)
GI: Abdominal Pain (n)
Objective Data
Data Reviewed
Vital Signs / I&O / Oxygen:
Vital Signs
Temp Pulse Resp BP Pulse Ox
97.4 F 79 16 130/76 90
01/17/25 11:09 01/17/25 11:43 01/17/25 11:43 01/17/25 11:09 01/17/25 11:43
Intake and Output
01/16/25 01/17/25 01/18/25
06:59 06:59 06:59
Intake Total 270 / 270 240 / 240
Output Total 1750 / 1750
Balance 270 / 270 -1510 / -1510
SaO2 90
Nasal Cannula flow liters per 1
minute
Physical Exam
General: Respiratory Distress (negative), Comfortable, Chills (negative) and Sweats (negative)
HEENT: Normocephalic and Anicteric
Cardiovascular: S1-S2, Murmur (NADIRA appreciated across precordium) and Peripheral Edema (negative)
Respiratory: Wheeze (negative), Crackles (Bilateral (much improved)), Rhonchi (Bilateral) and Non-Labored Respirations
GI: Soft, Non Distended and Normal Bowel Sounds
Neurology: AO x 3 and Tremors (negative)
Skin: Warm, Dry, Cyanosis (negative) and Jaundice (negative)
Labs/Micro/Reports
Lab Data
01/17/25 06:52
01/17/25 06:52
Microbiology
01/15/25 08:35 Sputum Respiratory Culture - Final
Usual Respiratory Carlita
01/15/25 08:35 Sputum Gram Stain - Final
01/15/25 02:47 Urine Legionella Urinary Antigen - Final
Negative for Legionella pneumophila Serogroup 1 antigen.
A negative result does not rule out the possiblity of
Legionella infection due to other serogroups or species of
Legionella. Clinical correlation is recommended.
01/15/25 02:47 Urine Streptococcus pneumoniae Antigen (M - Final
Negative for Streptococcus pneumoniae antigen.
A negative result does not exclude infection with
Streptococcus pneumoniae. Clinical correlation is
recommended.
01/14/25 17:16 Nasal Swab Influenza Types A & B (MARK) - Final
Negative for Influenza A & B, NAAT
Negative results must be combined with clinical observations
and patient history.
Nucleic Acid Amplification test (NAAT)performed on the
[employer] platform.
--- NOTE | 2025-01-17 15:17 | W.PN.UPDATE ---
Addendum entered and electronically signed by Dane Gifford MD 01/17/25 15:28:
Discussed with pharmacy since creatinine clearance improved patient can go back to 20 mg of Xarelto
Sent a message to cardiology regarding echo
Original Note:
Update Note
Progress Note Update
I saw and evaluated the patient. I reviewed the resident�s note and agree with findings and plan as documented in the resident�s note except for changes in my documentation
79-year-old male with respiratory failure
Pt feels well and anxious to go home.
CVS: S1-S2 normal
Chest: CTA B/L
Abdomen: Soft, NT / Bowel sounds present
Extremities: No edema
# Acute on chronic hypoxic respiratory failure
Moderate to severe restrictive lung disease
Sleep apnea
Idiopathic IPF with suspected flare-on Ofev as OP-follows up with Dr. Rubio
Currently on ceftriaxone, doxycycline, nebulizer treatments, change to POP to complete 1 week course.
IV steroids-change to PO taper
Mucolytics
Patient has oxygen concentrator and portable oxygen concentrator at home.
Patient uses a pulse ox machine to check his oxygen levels at home
# Elevated troponin-likely nonischemic myocardial injury
# Acute on chronic HFpEF-Lasix changed to p.o.
Echo pending
# Paroxysmal A-fib with cardioversion x 2 and ablation x 2-currently in sinus rhythm-continue diltiazem, Xarelto
# Status post bioprosthetic valve to valve replacement 2016
# Coronary artery disease with CABG 2017-continue Imdur, metoprolol,Do not resume lisinopril per cards
# MARLON on CKD-stage III-follow creatinine-improving
# Hypertension-continue metoprolol. Do not resume lisinopril per cards
# Hyperlipidemia-on Praluent, Tricor
# History of prostate cancer status post radiation treatment 2015
# Right carotid artery occlusion-follows with vascular surgery
# Ex-smoker quit in 2013
# DVT prophylaxis-continue Xarelto
# Full code
Part of this note was created using voice recognition system. Occasional wrong word or��sound alike� substitutions may have inadvertently occurred due to the inherent limitations of voice recognition software. If noted kindly bring it to my
attention for correction.
[2025-01-17 15:20] VITALS: BP 108/69
--- NOTE | 2025-01-17 15:56 | PTCARENOTE ---
Pt AAO x3, HO well, OOB in room/to BR; kim well. VSS. Telemetry:NSR. On room air- pulse ox 96%; pt denies SOB. Abd large, soft, kim PO well. Voids large amts clear alber urine in urinal. Face neal; chest and back reddened. Resting in bed at
present, no c/o. Will continue to monitor.
--- NOTE | 2025-01-17 16:08 | W.DCSUMMARY ---
Addendum entered and electronically signed by Dane Gifford MD 01/18/25 18:05:
Read, reviewed, and agree. See same day progress note for additional details. Time spent coordinating care, DC planning, review of DC plan of care with resident, transition of care, review of records in EMR, med rec, consults, notes, d/w
consultants, nursing,
Original Note:
Documented by User: Yolande Merrill MD, Resident 01/17/25 17:28
Discharge Summary
Discharge Data
Date of Admission: 01/14/25
Date of Discharge: 01/17/25
-
Pending Results: No
Hospital Course
Disposition : Home with VN
Principal Discharge diagnosis : Hypoxic respiratory failure, Moderate to severe restrictive lung disease, Pneumonia
Chronic Discharge diagnosis : Pulmonary hypertension, Chronic Heart failure, Atrial fibrillation, Coronary artery disease, Chronic kidney disease, Hypertension, Hyperlipidemia, History of prostate cancer, Hx of moderate-severe aortic stenosis s/p
bioprosthetic AVR (05/2017)
Hospital Course : The patient presented to ER complaining from 3 weeks of shortness of breath with cough and brownish sputum which did worsen for past few days. Patient had severe hypoxemia episode in [place] a week ago and did not have severe
problem since then expect having symptoms written above. He called his pulmonology office about his episode of hypoxemia and symptoms and recommended to go to the ER. At ER admission, he was found afebrile to 97.7F, HR 61, BP 116/74 and saturating
81% on 3L/min. His lab results showed WBC 10.4 in WNL, Hb 15.4, absolute eosinophil count 400, Cr 1.5, K 5.3, troponin 0.038, proBNP 2360, and covid-19/flu negative. CXR showed interstitial pneumonitis with increased ground-glass opacity in the
right upper lobe. The patient was started on steroids, Abx and diuretics and admitted to telemetry. The patient was seen by pulmonary and cardiology service for additional management and recommendations. Pulmonology recommended completing 7 days
of antibiotics for community-acquired pneumonia and continue steroid dose with a tapering plan at discharge, also recommending follow-up with pulmonology clinic in 2 weeks. Additionally, patient was recommended to continue Ofev. Cardiology
ordered an echo which showed reduced right ventricular systolic function and Trace tricuspid regurgitation and Moderately elevated PASP. Patient's Lasix recommended to decrease to his home dose to 20 mg p.o. daily and patient's lisinopril
recommended to discontinue given acute renal insufficiency at admission. Patient's Xarelto dose continued 20 mg as his home dose with renal function improvement at discharge. Patient was recommended to have an outpatient follow-up with cardiology
and his primary care physician.
Important imaging findings :
ECHO 01/17/25
CONCLUSIONS
Normal left ventricular systolic function. Left ventricular ejection fraction
is 55-60%.
Normally functioning bioprosthetic aortic valve. Peak gradient 14mmHg/Mean
gradient 8mmHg.
Normal right ventricular size. Reduced right ventricular systolic function.
Trace tricuspid regurgitation. Moderately elevated PASP. Estimated pulmonary
artery pressure of 51 mmHg assuming a right atrial pressure of 3 mmHg.
Compared to 02/27/24: when images directly compared, RV was not well seen on
prior study. PASP has increased from 28 mmHg to 51 mmHg.
Indications:
SOB
Rhythm: Sinus
Portable Study: No
Technical Quality: Technically difficult but
adequate for interpretation
Contrast: None
BP: 111 / 69
PROCEDURE
A complete Transthoracic Echocardiogram was performed utilizing two-dimensional
evaluation with color flow and spectral Doppler analysis.
FINDINGS
Left Ventricle
Normal left ventricular chamber size. Mild concentric left ventricular
hypertrophy. Normal left ventricular systolic function. Left ventricular
ejection fraction is 55-60% by visual assessment. Normal regional wall motion.
Stage II diastolic dysfunction suggestive of abnormal relaxation and increased
filling pressures.
Right Ventricle
Normal right ventricular size. Reduced right ventricular systolic function.
Left Atrium
Indexed LA volume is within normal range (15-34 mL/m2).
Right Atrium
Normal right atrium.
Mitral Valve
Thickened mitral valve leaflets. Mitral annular calcification. Trace mitral
regurgitation.
Aortic Valve
Normally functioning bioprosthetic aortic valve. Peak gradient 14mmHg/Mean
gradient 8mmHg. No aortic regurgitation is seen.
Tricuspid Valve
Tricuspid valve normal. Trace tricuspid regurgitation. Estimated pulmonary
artery pressure of 51 mmHg assuming a right atrial pressure of 3 mmHg.
Moderately elevated PASP.
Pulmonic Valve
Structurally normal pulmonic valve. Trace pulmonic regurgitation.
Pericardium\\Pleura
Normal pericardium without effusion.
Aorta
The aortic root is normal in caliber. The aortic arch is normal in caliber.
Other Finding
The IVC was not well visualized. Interatrial septum is intact with no evidence
of shunting by color flow Doppler. No intracardiac mass or thrombus formation
seen.
MEASUREMENTS (Male / Female) Normal Values
2D ECHO
LV Diastolic Diameter PLAX 4.2 cm 4.2 - 5.9 / 3.9 - 5.3 cm
LV Systolic Diameter PLAX 2.7 cm
IVS Diastolic Thickness 1.4 cm 0.6 - 1.0 / 0.6 - 0.9 cm
LVPW Diastolic Thickness 1.3 cm 0.6 - 1.0 / 0.6 - 0.9 cm
LV Relative Wall Thickness 0.6
LVOT Diameter 1.9 cm
LA Area 4C View 20.8 cm2 <= 20 cm2
LA Length 4C 6.5 cm
LA Volume 55.8 cm3 18 - 58 / 22 - 52 cm3
RV Diastolic Basal Diameter 3.9 cm 2.0 - 2.8 cm
RV Diastolic Mid Diameter 2.9 cm 2.7 - 3.3 cm
Aorta at Sinotubular Diameter 2.5 cm
Ascending Aorta Diameter 3.1 cm
Aorta at Sinuses Diameter 2.7 cm
M-MODE
AV Cusp Separation MM 1.4 cm
DOPPLER
AV Peak Velocity 188.0 cm/s
AV Peak Gradient 14.1 mmHg
AV Mean Gradient 8.0 mmHg
AV Velocity Time Integral 39.0 cm
LVOT Peak Velocity 97.9 cm/s
LVOT Peak Gradient 3.8 mmHg
LVOT Velocity Time Integral 22.9 cm
LVOT Stroke Volume 65.1 cm3
LVOT Stroke Volume Index 30.7 ml/m2 empty
LVOT Cardiac Index 2304.5 cm3/min
AV Area Cont Eq vti 1.7 cm2
AV Area Cont Eq pk 1.5 cm2
Mitral E Point Velocity 124.0 cm/s
Mitral A Point Velocity 93.8 cm/s
Mitral E to A Ratio 1.3
LV E' Lateral Velocity 7.1 cm/s
Mitral E to LV E' Lateral Ratio 17.5
LV E' Septal Velocity 7.2 cm/s
Mitral E to LV E' Septal Ratio 17.3
TR Peak Velocity 356.0 cm/s
TR Peak Gradient 50.7 mmHg
Logan Chen MD, PhD
(Electronically Signed)
Final Date: 17 Jan 2025 15:25
Dictated By: Logan Chen MD
Dictated Date & Time: 01/17/251314
Signed By: Loagn Chen MD
Signed Date & Time: 01/17/25 152
[employer] Faculty Member Date/Time: 01/17/251314
Transcribed By: MADYSON
01/14/2025 Chest X ray
FINDINGS:
There is evidence for previous midline sternotomy, coronary artery bypass graft surgery, and surgical aortic valve replacement. The heart is mildly enlarged.
The trachea is mildly deviated to the right. The lung volumes are mildly decreased bilaterally. There are markedly increased subpleural reticular interstitial markings in both lungs mixed with a large amount of ground-glass opacity in the right
upper lobe and left lower lobe which has increased since 06/16/2024. There is no radiographic evidence for new dense airspace consolidation containing air bronchograms. There is no pleural effusion or pneumothorax.
There is severe multilevel discogenic degenerative disease throughout the mid and lower thoracic spine and in the upper lumbar spine with loss of intervertebral disc space height and vertebral body endplate osteophytes. There is mild bilateral
osteoarthritis of the acromioclavicular joints.
There is no radiographic evidence for pneumoperitoneum or abnormal bowel dilatation in the upper abdomen. There are multiple surgical clips in the right side of the neck.
IMPRESSION:
1. 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
2. Interval increase in a large amount of ground-glass opacity in the right upper lobe which is likely acute inflammatory pneumonitis. Right upper lobe pneumonia is an alternative diagnostic possibility if there are signs/symptoms of infection
(probably less likely).
3. Mildly decreased bilateral lung volumes.
4. Mild cardiomegaly.
5. Previous CABG surgery and surgical aortic valve replacement.
Procedure findings :
Discharge Plan
-
Patient Disposition: Home (Routine Discharge)
Discharge Diagnosis/Procedures: Hypoxic respiratory failure
Moderate to severe restrictive lung disease
Lung infection
Pulmonary fibrosis
Heart failure
Atrial fibrillation
Coronary artery disease
Chronic kidney disease
Hypertension
Hyperlipidemia
History of prostate cancer
Diet: 2 Gram Sodium and Restrict fluids to 64 oz
Activity: As tolerated
Driving Restrictions: As prior to admission
Blood Work: cbc 2 -3 days, BMP 2-3 days
Other Services: VN
Specialty Instructions: Weigh Daily- Call MD for wt gain/loss 3 lbs overnight/5 lbs in 1 week
Referrals:
Mickey Sawyer MD [Active] - 02/01/25 3:20 pm
Shay Rubio MD [Family Provider] - in two to three weeks
Additional Discharge Medication Instructions: Stop Lisinopril
Prescriptions:
New
cefuroxime axetil 500 mg Tablet
500 mg PO BID Qty: 9 0RF
guaifenesin 600 mg Tablet Extended Release 12hr
600 mg PO Q12 Qty: 0 0RF
doxycycline hyclate 100 mg Capsule
100 mg PO Q12 Qty: 9 0RF
prednisone 10 mg Tablet
See Rx Instructions .ROUTE .COMPLEX Qty: 30 0RF
Rx Instructions:
Take By Mouth:
40 mg daily x3 days, 30 mg daily x3 days,
20 mg daily x3 days, 10 mg daily x3 days.
Continued
isosorbide mononitrate 30 MG tablet extended release 24 hr
30 mg PO DAILY
Xarelto 20 MG tablet
20 mg PO DAILY
furosemide 20 MG tablet
20 mg PO DAILY
diltiazem HCl [DILT-XR] 180 mg Capsule,Ext.Rel 24h Degradable
180 mg PO DAILY
metoprolol succinate [Toprol XL] 100 mg Tablet Extended Release 24 Hr
100 mg PO DAILY Qty: 0 0RF
therapeutic multivitamin Tablet
1 tab PO DAILY Qty: 0 0RF
fenofibrate nanocrystallized [Tricor] 145 mg Tablet
145 mg PO DAILY Qty: 0 0RF
Ofev 150 mg Capsule
150 mg PO HS Qty: 0 0RF
Praluent Pen 75 mg/mL Pen Injector
75 mg SC Q2W Qty: 0 0RF
Discontinued
lisinopril 20 MG tablet
20 mg PO DAILY
Discharge Orders:
Discharge Patient (As Directed); Ordered 01/17/25
Ordered By: Yolande Merrill
Discharge Date and Time
Discharge Date/Time: 01/17/25 18:01
Print Language: FINNISH

Documented by User: Dane Gifford MD 01/18/25 18:05
Discharge Summary
Discharge Data
Date of Admission: 01/14/25
Date of Discharge: 01/18/25
Discharge Plan
-
Patient Disposition: Home (Routine Discharge)
Discharge Diagnosis/Procedures: Hypoxic respiratory failure
Moderate to severe restrictive lung disease
Lung infection
Pulmonary fibrosis
Heart failure
Atrial fibrillation
Coronary artery disease
Chronic kidney disease
Hypertension
Hyperlipidemia
History of prostate cancer
Diet: 2 Gram Sodium and Restrict fluids to 64 oz
Activity: As tolerated
Driving Restrictions: As prior to admission
Blood Work: cbc 2 -3 days, BMP 2-3 days
Other Services: VN
Specialty Instructions: Weigh Daily- Call MD for wt gain/loss 3 lbs overnight/5 lbs in 1 week
Referrals:
Mickey Sawyer MD [Active] - 02/01/25 3:20 pm
Shay Rubio MD [Family Provider] - in two to three weeks
Additional Discharge Medication Instructions: Stop Lisinopril
Prescriptions:
New
cefuroxime axetil 500 mg Tablet
500 mg PO BID Qty: 9 0RF
guaifenesin 600 mg Tablet Extended Release 12hr
600 mg PO Q12 Qty: 0 0RF
doxycycline hyclate 100 mg Capsule
100 mg PO Q12 Qty: 9 0RF
prednisone 10 mg Tablet
See Rx Instructions .ROUTE .COMPLEX Qty: 30 0RF
Rx Instructions:
Take By Mouth:
40 mg daily x3 days, 30 mg daily x3 days,
20 mg daily x3 days, 10 mg daily x3 days.
Continued
isosorbide mononitrate 30 MG tablet extended release 24 hr
30 mg PO DAILY
Xarelto 20 MG tablet
20 mg PO DAILY
furosemide 20 MG tablet
20 mg PO DAILY
diltiazem HCl [DILT-XR] 180 mg Capsule,Ext.Rel 24h Degradable
180 mg PO DAILY
metoprolol succinate [Toprol XL] 100 mg Tablet Extended Release 24 Hr
100 mg PO DAILY Qty: 0 0RF
therapeutic multivitamin Tablet
1 tab PO DAILY Qty: 0 0RF
fenofibrate nanocrystallized [Tricor] 145 mg Tablet
145 mg PO DAILY Qty: 0 0RF
Ofev 150 mg Capsule
150 mg PO HS Qty: 0 0RF
Praluent Pen 75 mg/mL Pen Injector
75 mg SC Q2W Qty: 0 0RF
Discontinued
lisinopril 20 MG tablet
20 mg PO DAILY
Discharge Orders:
Discharge Patient (As Directed); Ordered 01/17/25
Ordered By: Yolande Merrill
Discharge Date and Time
Discharge Date/Time: 01/17/25 18:01
Print Language: FINNISH
--- NOTE | 2025-01-17 16:17 | CM ---
Per physician resident, plan is for patient to d/c today. CM informed of assistance needed for patient's O2 at home.
Met w/ patient bedside, agreeable to d/c today. CM inquired about O2 at home, patient stated his portable is not working which he found out while he was away fishing. CM advised for patient to reach out to his supplier, patient confirmed it's
[employer].
CM consulted for VN/home care, patient declined at this time
Spouse will transport
Plan: Home, no needs
--- NOTE | 2025-01-18 08:30 | PN.CDI ---
Addendum entered and electronically signed by Dane Gifford MD 01/18/25 18:04:
Documentation is complete at this time.
Original Note:
CDI
- -
CDI:
Physician Documentation Request
Admit Date: 01/14/25 16:57
Dear Doctor,
Please review the following and provide your response in the progress notes.
Clinical Indicators:
- 01/17 PN 'Elevated trop - non-ischemic myocardial injury possibly deu hypoxia'
- 01/17 Pulmonary 'Elevated troponin likely due to demand ischemia/type II WI'
Laboratory Tests
01/14/25 01/15/25 01/15/25
13:59 02:08 06:45
Troponin I 0.038 H* 0.029 0.020 D
In an attempt to clarify potentially conflicting documentation, please clarify the elevated troponins:
Non-ischemic myocardial injury
Type II WI/demand ischemica
Other (please specify)
Use of terms such as suspected, likely, concern for, or probable (associated with a specific diagnosis that is being evaluated, monitored, or treated as if it exists) are acceptable and can be coded in the inpatient setting, when documented at the
time of discharge.
Thank you,
Ginette Michel RN
CDI Specialist
Please use your independent medical judgment in providing your response.
== END 2025-01-17 18:01 | disposition home health service (06) | DRG 196 ==
LOC: 4 EAST ACU 16:57
PROVIDERS: Internal Medicine; Registered Nurse; Student in an Organized Health Care Education/Training Program; ADMITTING PHYSICIAN Hospitalist; ATTENDING PHYSICIAN Hospitalist; CONSULT PHYSICIAN Internal Medicine Cardiovascular Disease; CONSULT PHYSICIAN Internal Medicine Critical Care Medicine; EMERGENCY PHYSICIAN Emergency Medicine; FAMILY PHYSICIAN Internal Medicine Critical Care Medicine
DX: J84.9 Interstitial pulmonary disease, unspecified (principal); I50.33 Acute on chronic diastolic (congestive) heart failure; J96.21 Acute and chronic respiratory failure with hypoxia; N17.9 Acute kidney failure, unspecified; I13.0 Hypertensive heart and chronic kidney disease with heart failure and stage 1 through stage 4 chronic kidney disease, or unspecified chronic kidney disease; I5A Non-ischemic myocardial injury (non-traumatic); E87.0 Hyperosmolality and hypernatremia; J84.89 Other specified interstitial pulmonary diseases; J84.112 Idiopathic pulmonary fibrosis; E87.5 Hyperkalemia; I48.0 Paroxysmal atrial fibrillation; N18.9 Chronic kidney disease, unspecified; E78.00 Pure hypercholesterolemia, unspecified; Z87.891 Personal history of nicotine dependence; Z11.52 Encounter for screening for COVID-19
CPT/HCPCS: 71046; 80048; 80053; 83735; 83880; 84100; 84443; 84484; 85025; 86140; 87070; 87205; 87449; 87502; 87811; 87899; 93005; 93306; 94640; 99285

== ENCOUNTER → 2025-01-24 09:44 | Outpatient (REF) | payer BC, SELFPAY ==
[2025-01-24 10:29] LABS: % Basophils 0.2 % (0-2); % Eosinophils 1.7 % (0-6); % Immature Granulocytes 0.7 % (0-0.5); % Lymphocytes 22.9 % (20.5-51.1); % Monocytes 9.6 % (1.7-9.3); % Neutrophils 64.9 % (42.2-75.2); Absolute Eosinophils 0.3 10^3/uL (0-0.7); Absolute Immature Granulocytes 0.1 10^3/uL (0-0.05); Absolute Monocytes 1.7 10^3/uL (0.1-0.6); Absolute Neutrophils 11.3 10^3/uL (1.4-6.5); Hematocrit 59.7 % (39.0-52.0); Hemoglobin 18.7 g/dL (13.0-18.0); Mean Corp Hgb Conc. 31.3 g/dL (33.0-37.0); Mean Corpuscular Hgb 30.3 pg (27.0-31.0); Mean Corpuscular Volume 96.8 fL (80.0-94.0); Mean Platelet Volume 10.1 fL (7.4-10.4); Nucleated Red Blood Cells % 0 % (-); Platelet Count 171 10^3/uL (130-400); Red Blood Cell Count 6.17 10^6/uL (4.70-6.10); Red Cell Dist. Width 16.9 % (11.5-14.5); White Blood Cell Count 17.4 10^3/uL (4.8-10.8)
[2025-01-24 11:01] LABS: Blood Urea Nitrogen 40 mg/dl (9-20); Calcium 10.1 mg/dl (8.4-10.2); Carbon Dioxide 32 mmol/L (22-30); Chloride 104 mmol/L (98-107); Glucose 88 mg/dl (70-99); Sodium 146 mmol/L (135-145); eGFR 51.77
== END ==
LOC: REG 09:44
PROVIDERS: ATTENDING PHYSICIAN Student in an Organized Health Care Education/Training Program; FAMILY PHYSICIAN Internal Medicine
DX: R06.02 Shortness of breath (principal)
CPT/HCPCS: 36415; 80048; 85025

== ENCOUNTER → 2025-02-11 17:09 | Outpatient (REF) | payer BC, SELFPAY | LOC: CLAB 17:09 | PROVIDERS: ATTENDING PHYSICIAN Otolaryngology Facial Plastic Surgery | DX: D22.9 Melanocytic nevi, unspecified (principal) | CPT/HCPCS: 88305 ==

== ENCOUNTER → 2025-03-08 09:37 | Outpatient (REF) | payer BC, SELFPAY | LOC: RAD 09:37 | PROVIDERS: ATTENDING PHYSICIAN Nurse Practitioner Family | DX: Z87.01 Personal history of pneumonia (recurrent) (principal) | CPT/HCPCS: 71046 ==

== ENCOUNTER → 2025-05-11 08:30 | Outpatient (REF) | payer BC, SELFPAY ==
[2025-05-11 09:19] LABS: Hematocrit 52.3 % (39.0-52.0); Hemoglobin 16.6 g/dL (13.0-18.0); Mean Corp Hgb Conc. 31.7 g/dL (33.0-37.0); Mean Corpuscular Volume 96.5 fL (80.0-94.0); Platelet Count 188 10^3/uL (130-400); Red Cell Dist. Width 15.0 % (11.5-14.5)
[2025-05-11 10:12] LABS: ALT (SGPT) 18 U/L (0-50); AST (SGOT) 32 U/L (17-59); Albumin 4.4 g/dl (3.5-5.0); Alkaline Phosphatase 52 U/L (38-126); Blood Urea Nitrogen 21 mg/dl (9-20); Calcium 9.6 mg/dl (8.4-10.2); Carbon Dioxide 27 mmol/L (22-30); Chloride 107 mmol/L (98-107); Glucose 89 mg/dl (70-99); Potassium 5.0 mmol/L (3.5-5.1); Sodium 141 mmol/L (135-145); Total Protein 7.5 g/dl (6.3-8.2); eGFR > 60.00
[2025-05-11 13:38] VITALS: BMI 31.3
== END ==
LOC: SDSPAT 08:30
PROVIDERS: ATTENDING PHYSICIAN Otolaryngology Facial Plastic Surgery; REFERRING PHYSICIAN Internal Medicine
DX: G47.33 Obstructive sleep apnea (adult) (pediatric) (principal)
CPT/HCPCS: 36415; 80053; 85027